=== PATIENT | female | born 2000 | race Caucasian/White ===

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

== ENCOUNTER → 2020-02-19 10:42 | Outpatient (CLI) | payer MEDICAID, SELFPAY | PROVIDERS: Visit Provider Nurse Practitioner Obstetrics & Gynecology | DX: Z34.90 Encounter for supervision of normal pregnancy, unspecified, unspecified trimester (principal) | CPT/HCPCS: 36415; 84702 ==

== ENCOUNTER → 2020-02-23 10:15 | Outpatient (CLI) | payer MEDICAID, SELFPAY ==
[2020-02-23 10:45] LABS: Basophils % 0.2 % (0.1-2.0); Eosinophils # 0.1 K/mm3 (0.0-0.4); Eosinophils % 1.1 % (0.1-12.0); Hematocrit 36.9 % (37.0-47.0); Hemoglobin 11.8 g/dL (12.2-16.2); Lymphocytes # 1.3 K/mm3 (0.7-4.5); Lymphocytes % 18.3 % (10-50); Mean Corpuscular HGB Conc 31.9 g/dL (31.8-35.4); Mean Corpuscular Hemoglobin 31.4 pg (27.0-31.2); Mean Corpuscular Volume 98.6 fl (81-99); Mean Platelet Volume 9.2 fl (7.4-10.4); Monocytes # 0.3 K/mm3 (0.1-1.0); Monocytes % 4.7 % (1.7-9.3); Neutrophils # 5.2 K/mm3 (1.8-7.8); Neutrophils % 75.7 % (37.0-80.0); Platelet Count 183 K/mm3 (142-424); Red Blood Count 3.74 M/mm3 (4.20-5.40); Red Cell Distribution Width 12.6 % (11.5-17.5); White Blood Count 6.8 K/mm3 (4.5-13.0)
[2020-02-24 13:19] LABS: HIV Screen 4th Generation wRfx Non Reactive (Non Reactive); Rubella Antibodies, IgG 1.07 index (Immune >0.99)
[2020-02-24 13:20] LABS: Hepatitis B Surface Antigen Negative (Negative); Hepatitis C Antibody 0.1 s/co ratio (0.0-0.9)
[2020-02-24 15:50] LABS: Rapid Plasma Reagin Ab Titer Non Reactive (NonRea<1:1)
[2020-02-26 09:35] LABS: Neisseria gonorrhoeae, NAA Negative (Negative)
== END ==
PROVIDERS: Visit Provider Nurse Practitioner Obstetrics & Gynecology
DX: Z34.90 Encounter for supervision of normal pregnancy, unspecified, unspecified trimester (principal); Z3A.08 8 weeks gestation of pregnancy
CPT/HCPCS: 36415; 85025; 86592; 86703; 86762; 86850; 87340; 87380; 87491; 87591; G0432

== ENCOUNTER → 2020-02-26 10:33 | Outpatient (CLI) | payer MEDICAID, SELFPAY ==
--- NOTE | 2020-02-26 10:40 | US_ITS ---
PROCEDURE: US OB TRANSVAGINAL CLINICAL INDICATION: DATES COMPARISON: US US OB TRANSVAGINAL from 02/27/2019 FINDINGS: An intrauterine gestational sac is present with a pole with a crown-rump length of 2.04cm correlating to gestational age of 8weeks 5days. heart tones are present with an FHR of 186bpm. Yolk sac is noted. There is an area of decreased echogenicity along the anterior aspect of the gestational sac suspicious for small area subchorionic hemorrhage. This measures approximately 3 x 0.8 cm. Consider follow-up to confirm resolution. IMPRESSION: Live IUP at 8 weeks 5 days. Estimated due date by Ultrasound is 10/02/2020 Possible small area of subchorionic hemorrhage. Dictated by: Wilfredo Carrion MD 02/26/2020 17:48 Wilfredo Carrion MD in [place] 02/26/2020 17:48
== END ==
PROVIDERS: Visit Provider Nurse Practitioner Obstetrics & Gynecology
DX: Z34.90 Encounter for supervision of normal pregnancy, unspecified, unspecified trimester (principal)
CPT/HCPCS: 76817

== ENCOUNTER → 2020-03-14 09:47 | Outpatient (CLI) | payer MEDICAID, SELFPAY | PROVIDERS: Visit Provider Nurse Practitioner Obstetrics & Gynecology | DX: Z34.90 Encounter for supervision of normal pregnancy, unspecified, unspecified trimester (principal) | CPT/HCPCS: 36415 ==

== ENCOUNTER 2020-04-25 12:58 | Emergency (ER) | payer OTHER, SELFPAY ==
[2020-04-25 12:59] VITALS: BP 124/64; PULSE 98; RESP 20; TEMP 36.9; O2SAT 100; BMI 19.5
[2020-04-25 13:22] LABS: Microscopic, Urine URINE MICROSCOPIC (MICROSCOPIC)
[2020-04-25 13:28] LABS: Appearance,Urine SL CLOUDY (Clear); Bilirubin,Urine Negative (Negative); Blood, Urine Negative (Negative); Color,Urine YELLOW (Yellow); Glucose,Urine (UA) Negative (Negative); Ketones,Urine Negative (Negative); Leukocyte Esterase,Urine 2+ (Negative); Nitrate,Urine Negative (Negative); PH,Urine 7.5 (5.0-8.5); Protein,Urine Negative (Negative); Urobilinogen,Urine 0.2 EU/dl (0.2)
[2020-04-25 13:28] LABS: Basophils % 0.3 % (0.1-2.0); Eosinophils # 0.1 K/mm3 (0.0-0.4); Eosinophils % 0.5 % (0.1-12.0); Hematocrit 38.7 % (37.0-47.0); Hemoglobin 13.1 g/dL (12.2-16.2); Lymphocytes # 1.2 K/mm3 (0.7-4.5); Lymphocytes % 10.5 % (10-50); Mean Corpuscular HGB Conc 33.9 g/dL (31.8-35.4); Mean Corpuscular Hemoglobin 32.6 pg (27.0-31.2); Mean Corpuscular Volume 96.1 fl (81-99); Mean Platelet Volume 9.1 fl (7.4-10.4); Monocytes # 0.4 K/mm3 (0.1-1.0); Monocytes % 3.3 % (1.7-9.3); Neutrophils # 9.5 K/mm3 (1.8-7.8); Neutrophils % 85.5 % (37.0-80.0); Platelet Count 205 K/mm3 (142-424); Red Blood Count 4.02 M/mm3 (4.20-5.40); Red Cell Distribution Width 13.8 % (11.5-17.5); White Blood Count 11.1 K/mm3 (4.5-13.0)
[2020-04-25 13:32] LABS: Alanine Aminotransferase 22 U/L (12-78); Albumin Level 4.2 g/dl (3.5-5.0); Albumin/Globulin Ratio 1.4 (1.1-1.8); Alkaline Phosphatase 53 U/L (38-126); Aspartate Amino Transferase 29 U/L (14-36); Bilirubin,Total 0.4 mg/dl (0.2-1.3); Blood Urea Nitrogen 3 mg/dl (7-17); Carbon Dioxide 27 mmol/L (22.0-30.0); Creatinine Clearance Estimated 185 mL/min (50-200); Estimated Glomerular Filt Rate 206 ml/min (>60); GFR (African American) 249 ML/MIN (>60); Globulin 2.9 g/dL (1.3-3.2); Glucose 92 mg/dl (74-100); Potassium 3.9 mmoL/L (3.5-5.1); Sodium 136 mmol/L (136-145); Total Protein,Serum 7.1 g/dl (6.3-8.2)
[2020-04-25 13:34] LABS: MANUAL DIFFERENTIAL MANUAL DIFFERENTIAL (MANUAL DIFF)
[2020-04-25 13:38] LABS: Anion Gap 10.9 mEq/L (5-15); Chloride 102 mmol/L (98-107)
[2020-04-25 13:39] LABS: Lymphocytes % 17 % (10-50); Monocytes % 4 % (2-9); Neutrophils % 78 % (42-76); Platelet Estimate Normal; RBC Morphology Normal; Total Cells Counted 100
[2020-04-25 13:43] LABS: Bacteria,Urine 2+ /lpf; Mucus,Urine Trace /lpf
--- NOTE | 2020-04-25 14:01 | PC.NURSE ---
heart tones 156
--- NOTE | 2020-04-25 14:04 | US_ITS ---
PROCEDURE: US OB >= 14 WEEKS FETUS CLINICAL INDICATION: pain, bleeding COMPARISON: US US OB TRANSVAGINAL from 02/26/2020 FINDINGS: An intrauterine gestational sac is present with a pole with a crown-rump length of correlating to gestational age of 17weeks 6days. heart tones are present with an FHR of 140bpm. Yolk sac is noted. The cervix is closed and measures 4 cm. The placenta is anterior. BPD is 18 weeks 2 days, OFD 18 weeks 1 day, HC 17 weeks 5 days, AC 17 weeks 3 days, FL 17 weeks 4 days. Estimated weight is 196 g. There is of average amount of amniotic fluid. Fetus is in transverse lie. The placenta is anterior and low. IMPRESSION: There is a live IUP with an average ultrasound age 17 weeks and 6 days. This does not constitute an anatomy exam. Please see above for detail. Estimated due date by Ultrasound is 09/27/2020 Dictated by: Wilfredo Carrion MD 04/25/2020 15:59 Wilfredo Carrion MD in [place] 04/25/2020 15:59
--- NOTE | 2020-04-25 14:27 | HMH.EDUROGF ---
ED Disposition Clinical Impression: Threatened Disposition: Home, Self-Care Condition on Discharge: Good Instructions: DI for Threatened Prescriptions: cephALEXin [Keflex 500mg Cap] 500 mg PO BID #10 cap Transmission Status: Pending to [facility] Referrals: Moose Jackson MD [Primary Care Provider] - - Critical Care Critical Care Time: No Attestation: On 04/25/20, the high probability of a clinically significant, sudden or life threatening deterioration of the following system(s) required my full and direct attention, intervention and personal management. The time I documented below is in addition to time spent performing reported procedures but includes the following listed in this critical care notation. Medical Decision Making - Medical Records Medical records reviewed: Yes: I reviewed the patient's medical records. - Marco Inquiry Pt receiving controlled substance: No Vital Signs: 04/25/20 12:59 04/25/20 14:59 04/25/20 15:47 Temperature 98.5 F Temperature Source Oral Pulse Rate [Left Radial] 98 H 77 77 Respiratory Rate 20 Blood Pressure [Right Arm] 124/64 99/59 L 99/63 L Blood Pressure Mean [Right Arm] 84 72 75 Blood Pressure Source [Right Arm] Automatic Cuff Automatic Cuff Automatic Cuff Blood Pressure Position [Right Arm] Sitting Sitting 02 Sat by Pulse Oximetry 100 99 99 Oxygen Delivery Method Room Air Room Air Room Air - Lab Data Lab Results 04/25/20 13:10: Urine Color Yellow, Urine Appearance Sl cloudy, Urine pH 7.5, Ur Specific [place] 1.020, Urine Protein Negative, Urine Glucose (UA) Negative, Urine Ketones Negative, Urine Blood Negative, Urine Nitrate Negative, Urine Bilirubin Negative, Urine Urobilinogen 0.2, Ur Leukocyte Esterase 2+ A, Urine WBC 5-10, Ur Squamous Epith Cells 10-20, Urine Bacteria 2+, Urine Mucus Trace 04/25/20 13:15: WBC 11.1, RBC 4.02 L, Hgb 13.1, Hct 38.7, MCV 96.1, MCH 32.6 H, MCHC 33.9, RDW 13.8, Plt Count 205, MPV 9.1, Neut % (Auto) 85.5 H, Lymph % (Auto) 10.5, [place] % (Auto) 3.3, Eos % (Auto) 0.5, Baso % (Auto) 0.3, Neut # (Auto) 9.5 H, Lymph # (Auto) 1.2, [place] # (Auto) 0.4, Eos # (Auto) 0.1, Baso # (Auto) 0.0, Total Counted 100, Neutrophils % (Manual) 78 H, Band Neutrophils % 1.0, Lymphocytes % (Manual) 17, Monocytes % (Manual) 4, Platelet Estimate Normal, RBC Morphology Normal 04/25/20 13:15: Sodium 136, Potassium 3.9, Chloride 102, Carbon Dioxide 27, Anion Gap 10.9, BUN 3 L, Creatinine 0.40 L, Estimated Creat Clear 185, Estimated GFR 206, Est GFR ( Amer) 249, Glucose 92, Calcium 9.0, Total Bilirubin 0.4, AST 29, ALT 22, Alkaline Phosphatase 53, Total Protein 7.1, Albumin 4.2, Globulin 2.9, Albumin/Globulin Ratio 1.4, HCG, Quant [id number] H Result diagrams: 04/25/20 13:15 04/25/20 13:15 Orders (Tests/Meds): ED MEDICATIONS Discontinued Medications Generic Name Dose Route Start Last Admin Trade Name Freq PRN Reason Stop Dose Admin Acetaminophen 1,000 mg 04/25/20 14:04 04/25/20 14:39 Acetaminophen 500mg Tab PO 04/25/20 14:05 1,000 mg ONCE ONE Administration Sodium Chloride 1,000 mls @ 999 mls/hr 04/25/20 14:15 04/25/20 14:39 Sod Chlor 0.9% 1000ml Bag IV 04/25/20 15:15 999 mls/hr .Q1H1M NILAM Administration ORDERS Category Date Time Status Urine Culture Stat Micro 04/25/20 13:10 Received US OB >= 14 weeks Fetus Stat Ultrasound 04/25/20 14:04 Ordered - US Data US Images: Pelvis ED US Reviewed: Yes: I have reviewed the patient's US results Findings Narrative: No evidence of free fluid in the abdomen. Good heart tones. - Reevaluation(s) Time: 16:39 Reevaluation #1: On reevaluation, patient is feeling better. She does have evidence of bacteria in her urine. Will be placed on short course of antibiotics. Patient does need follow-up with her COATING TECHNICIAN in 24 hours. Given strict return precautions. Verbalized understanding. Medical Decision Narrative: This is a 19-year-
[2020-04-25 14:59] VITALS: BP 99/59; PULSE 77; O2SAT 99
--- NOTE | 2020-04-25 15:00 | PC.NURSE ---
notified rad of ultrasound order
--- NOTE | 2020-04-25 15:13 | PC.NURSE ---
Pt to US
[2020-04-25 15:47] VITALS: BP 99/63; PULSE 77; O2SAT 99
--- NOTE | 2020-04-25 15:49 | PC.NURSE ---
Pt returned from rad.
[2020-04-25 17:02] VITALS: BP 114/70; PULSE 75; RESP 18; TEMP 36.9; O2SAT 100
== END 2020-04-25 17:03 | disposition home or self-care (01) ==
PROVIDERS: Emergency Provider Emergency Medicine; PCP Internal Medicine Adolescent Medicine
DX: O20.0 Threatened abortion (principal); Z88.0 Allergy status to penicillin
CPT/HCPCS: 76805; 80053; 81001; 84702; 85007; 85025; 87086; 96365; 99283

== ENCOUNTER → 2020-04-26 17:10 | Outpatient (CLI) | payer OTHER, SELFPAY ==
[2020-04-26 17:23] LABS: Microscopic, Urine URINE MICROSCOPIC (MICROSCOPIC)
[2020-04-26 18:02] LABS: Appearance,Urine CLOUDY (Clear); Bilirubin,Urine Negative (Negative); Blood, Urine Negative (Negative); Color,Urine YELLOW (Yellow); Glucose,Urine (UA) Negative (Negative); Ketones,Urine Negative (Negative); Leukocyte Esterase,Urine 3+ (Negative); Nitrate,Urine Negative (Negative); PH,Urine 7.5 (5.0-8.5); Protein,Urine Negative (Negative); Specific Gravity, Urine 1.025 (1.005-1.030); Urobilinogen,Urine 0.2 EU/dl (0.2)
[2020-04-26 18:21] LABS: Amorphous Sediment,Urine 1+ /lpf; Bacteria,Urine 1+ /lpf
== END ==
PROVIDERS: Visit Provider Nurse Practitioner Obstetrics & Gynecology
DX: Z34.90 Encounter for supervision of normal pregnancy, unspecified, unspecified trimester (principal); Z3A.17 17 weeks gestation of pregnancy
CPT/HCPCS: 81001; 87086

== ENCOUNTER → 2020-05-17 12:59 | Outpatient (CLI) | payer OTHER, SELFPAY ==
--- NOTE | 2020-05-17 13:00 | US_ITS ---
PROCEDURE: US OB /MATERNAL DETAIL Referring Doctor: Stanford Esparza Patient Age:19Y CLINICAL INDICATION: 20 week gestation the. Follow-up COMPARISON: US US OB >= 14 WEEKS FETUS from 04/25/2020-at which time the AUA was 17 weeks 6 days FINDINGS: Single viable intrauterine gestation. Breech position. Placenta: Anteriorplacenta grade 1 . There is average amount fluid. The cervix appears satisfactory. Closed and measuring 4 cm in length. Complete survey performed and was unremarkable on the submitted images as in PACS. No discrete anomalies identified on survey imaging by technologist. Active fetus. Three-vessel cord with satisfactory umbilical cord insertion. 4- chamber heart noted. LVOT imaged and unremarkable Survey of brain & ventricles Unremarkable. Face and neck survey unremarkable. Diaphragm and chest views unremarkable. Abdomen: Both kidneys noted and unremarkable. Stomach noted and satisfactory. Spine: Survey of the spine satisfactory with no anomalies identified nor imaged. Both arms and legs noted. Amniotic Fluid: Adequate. Maternal adnexa: No significant findings. Measurements: Average ultrasound age 20weeks 2days. Gestational Age 20weeks 2days Estimated due date by ultrasound age 0510/02/2020. Estimated weight 342ggrams. BPD = 20 weeks 3 days OFD = 20 weeks 6 days HC = 20 weeks 0 days AC = 20 weeks 2 days FL = 20 weeks 3 days Growth Percentile= 34Percent% Heart Rate = 147bpm Cerebellum = 20 weeks 3 days Humerus = 20 week 4 day HC/AC is 1.16 CI is 0.76 FL/BPD is 0.7 FL/AC is 0.22 IMPRESSION: Single viable intrauterine gestation 20 weeks 2 days average ultrasound age Breech position. Placenta anterior high grade 1. . Anatomy survey unremarkable/WNL Cervix length and amnionic fluid satisfactory movement seen throughout the exam Dictated by: Aroldo Chinchilla MD 05/17/2020 19:31 Aroldo Chinchilla MD in [place] 05/17/2020 19:31
== END ==
PROVIDERS: PCP Internal Medicine Adolescent Medicine; Visit Provider Nurse Practitioner Obstetrics & Gynecology
DX: Z34.90 Encounter for supervision of normal pregnancy, unspecified, unspecified trimester (principal); Z3A.20 20 weeks gestation of pregnancy
CPT/HCPCS: 76811

== ENCOUNTER 2020-05-20 22:53 | Outpatient (CLI) | payer OTHER, SELFPAY ==
[2020-05-20 23:02] VITALS: BP 106/72; PULSE 72; RESP 16; TEMP 36.9; O2SAT 100; BMI 18.7
[2020-05-20 23:48] LABS: Microscopic, Urine URINE MICROSCOPIC (MICROSCOPIC)
[2020-05-20 23:50] LABS: Basophils # 0.1 K/mm3 (0-0.2); Basophils % 0.4 % (0.1-2.0); Eosinophils # 0.2 K/mm3 (0.0-0.4); Eosinophils % 1.4 % (0.1-12.0); Hematocrit 36.2 % (37.0-47.0); Lymphocytes # 1.8 K/mm3 (0.7-4.5); Lymphocytes % 13.9 % (10-50); Mean Corpuscular Hemoglobin 32.4 pg (27.0-31.2); Mean Platelet Volume 9.2 fl (7.4-10.4); Monocytes # 0.6 K/mm3 (0.1-1.0); Monocytes % 4.3 % (1.7-9.3); Neutrophils # 10.6 K/mm3 (1.8-7.8); Neutrophils % 80.1 % (37.0-80.0); Platelet Count 210 K/mm3 (142-424); White Blood Count 13.3 K/mm3 (4.5-13.0)
[2020-05-20 23:52] LABS: Appearance,Urine SL CLOUDY (Clear); Bilirubin,Urine Negative (Negative); Blood, Urine 3+ (Negative); Color,Urine YELLOW (Yellow); Glucose,Urine (UA) Negative (Negative); Ketones,Urine Negative (Negative); Leukocyte Esterase,Urine TRACE (Negative); Nitrate,Urine Negative (Negative); PH,Urine 6.5 (5.0-8.5); Protein,Urine Negative (Negative); Specific Gravity, Urine 1.015 (1.005-1.030); Urobilinogen,Urine 0.2 EU/dl (0.2)
[2020-05-20 23:56] LABS: RBC,Urine 50-100 #/hpf (0-3)
[2020-05-21 00:03] LABS: Amphetamine/Metha Screen,Urine Negative ng/ml (<1000); Barbiturates Screen,Urine Negative ng/ml (<200)
[2020-05-21 00:04] LABS: Cannabinoid Screen,Urine Negative ng/ml (<50); Cocaine Screen,Urine Negative ng/ml (<300)
[2020-05-21 00:05] LABS: Methadone Screen,Urine Negative ng/ml (<300)
[2020-05-21 00:06] LABS: Opiate Screen,Urine Negative ng/ml (<300); Phencyclidine Screen,Urine Negative ng/ml (<25)
[2020-05-21 00:26] LABS: Benzodiazepines Screen,Urine Negative ng/ml (<200)
== END 2020-05-21 00:18 | disposition home or self-care (01) ==
LOC: OBOUT 22:55 → OB 22:56
PROVIDERS: PCP Nurse Practitioner Obstetrics & Gynecology; Visit Provider Obstetrics & Gynecology
DX: O26.859 Spotting complicating pregnancy, unspecified trimester (principal); Z3A.20 20 weeks gestation of pregnancy
CPT/HCPCS: 80305; 81001; 85025; 96365; G0463

== ENCOUNTER → 2020-06-28 08:19 | Outpatient (CLI) | payer OTHER, SELFPAY ==
[2020-06-28 08:50] LABS: Glucose,Fasting 88 mg/dl (74-100)
[2020-06-28 10:08] LABS: Glucose 1 Hour 79 mg/dL (74-100)
== END ==
PROVIDERS: Visit Provider Nurse Practitioner Obstetrics & Gynecology
DX: Z34.90 Encounter for supervision of normal pregnancy, unspecified, unspecified trimester (principal)
CPT/HCPCS: 36415; 82951

== ENCOUNTER → 2020-07-18 10:11 | Outpatient (CLI) | payer OTHER, SELFPAY ==
--- NOTE | 2020-07-18 10:15 | US_ITS ---
PROCEDURE: US OB FOLLOW UP CLINICAL INDICATION: SGA Small for gestational age COMPARISON: US US OB /MATERNAL DETAIL from 05/17/2020 FINDINGS: There is a single live fetus present which is in cephalic presentation. The cervix is closed measuring 3 cm. Placenta is anterior in implantation and grade 1. Measurements: Average ultrasound age 29weeks 3days. Gestational Age 29weeks 2days Estimated due date by ultrasound age 0509/30/2020. Estimated weight 1,380g BPD = 29weeks 3days OFD = 29weeks 2days HC = 29weeks 1day AC = 29weeks 1day FL = 29weeks 6days Growth Percentile= 39Percent% Heart Rate = 127bpm Cerebellum = Humerus = HC/AC is 1.08 CI is 0.77 FL/BPD is 0.78 FL/AC is 0.23 CLAUDE is 13 cm. IMPRESSION: Live IUP in cephalic presentation with an average ultrasound age 29 weeks 3 days. Estimated weight is 1380 g which is 39th percentile. CLAUDE is normal at 13 cm Dictated by: Wilfredo Carrion MD 07/19/2020 08:54 Wilfredo Carrion MD in [place] 07/19/2020 08:54
== END ==
PROVIDERS: PCP Internal Medicine Adolescent Medicine; Visit Provider Nurse Practitioner Obstetrics & Gynecology
DX: O36.5131 Maternal care for known or suspected placental insufficiency, third trimester, fetus 1 (principal)
CPT/HCPCS: 76816

== ENCOUNTER → 2020-09-06 17:18 | Outpatient (CLI) | payer OTHER, SELFPAY | PROVIDERS: Visit Provider Nurse Practitioner Obstetrics & Gynecology | DX: Z34.90 Encounter for supervision of normal pregnancy, unspecified, unspecified trimester (principal) | CPT/HCPCS: 86403 ==

== ENCOUNTER → 2020-09-07 12:46 | Outpatient (CLI) | payer OTHER, SELFPAY ==
[2020-09-07 13:09] LABS: Adenovirus,PCR Not Detected (NotDetected); Bordetella Pertussis Not Detected (NotDetected); Chlamydophila Pneumoniae, PCR Not Detected (NotDetected); Coronavirus 19, PCR Not Detected (NotDetected); Coronavirus 229E Not Detected (NotDetected); Coronavirus NL63 Not Detected (NotDetected); Coronavirus OC43 Not Detected (NotDetected); Coronovirus HKU1,PCR Not Detected (NotDetected); Human Metapneumovirus Not Detected (NotDetected); Influenza A, PCR Not Detected (NotDetected); Influenza AH1, 2009 Not Detected (NotDetected); Influenza AH1, PCR Not Detected (NotDetected); Influenza AH3,PCR Not Detected (NotDetected); Influenza B, PCR Not Detected (NotDetected); Mycoplasma Pneumoniae, PCR Not Detected (NotDetected); Parainfluenza 1, PCR Not Detected (NotDetected); Parainfluenza 2, PCR Not Detected (NotDetected); Parainfluenza 3, PCR Not Detected (NotDetected); Parainfluenza 4, PCR Not Detected (NotDetected); Respiratory Syncytial Virus Not Detected (NotDetected)
[2020-09-07 21:11] LABS: Rhinovirus/Enterovirus Detected (NotDetected)
== END ==
PROVIDERS: PCP Internal Medicine Adolescent Medicine; Visit Provider Internal Medicine Adolescent Medicine
DX: Z20.822 Contact with and (suspected) exposure to COVID-19 (principal); J06.9 Acute upper respiratory infection, unspecified; A08.11 Acute gastroenteropathy due to Norwalk agent
CPT/HCPCS: 87581; 87633; 87798

== ENCOUNTER 2020-09-10 05:33 | Outpatient (CLI) | payer OTHER, SELFPAY ==
[2020-09-10 05:40] VITALS: BMI 23.3
[2020-09-10 06:24] LABS: Microscopic, Urine URINE MICROSCOPIC (MICROSCOPIC)
[2020-09-10 06:36] VITALS: BP 115/78; PULSE 73; RESP 16; TEMP 36.8; O2SAT 97; BMI 23.3
[2020-09-10 06:37] LABS: Appearance,Urine CLEAR (Clear); Bilirubin,Urine Negative (Negative); Blood, Urine Negative (Negative); Color,Urine YELLOW (Yellow); Glucose,Urine (UA) Negative (Negative); Ketones,Urine Negative (Negative); Leukocyte Esterase,Urine Negative (Negative); Nitrate,Urine Negative (Negative); Protein,Urine Negative (Negative); Specific Gravity, Urine 1.015 (1.005-1.030); Urobilinogen,Urine 0.2 EU/dl (0.2)
[2020-09-10 06:42] LABS: Amphetamine/Metha Screen,Urine Negative ng/ml (<1000)
[2020-09-10 06:43] LABS: Barbiturates Screen,Urine Negative ng/ml (<200)
[2020-09-10 06:44] LABS: Benzodiazepines Screen,Urine Negative ng/ml (<200)
[2020-09-10 06:45] LABS: Cannabinoid Screen,Urine Negative ng/ml (<50); Cocaine Screen,Urine Negative ng/ml (<300)
[2020-09-10 06:46] LABS: Methadone Screen,Urine Negative ng/ml (<300)
[2020-09-10 06:46] LABS: Fetal Membrane Rupture (Rapid) Negative (Negative)
[2020-09-10 06:47] LABS: Opiate Screen,Urine Negative ng/ml (<300); Phencyclidine Screen,Urine Negative ng/ml (<25)
[2020-09-10 06:53] LABS: Bacteria,Urine Trace /lpf; WBC,Urine Occasional #/hpf (0-3)
== END 2020-09-10 11:26 | disposition home or self-care (01) ==
LOC: OBOUT 05:35 → OB 05:36
PROVIDERS: PCP Internal Medicine Adolescent Medicine; Referring Provider Nurse Practitioner Obstetrics & Gynecology; Visit Provider Obstetrics & Gynecology
DX: O60.03 Preterm labor without delivery, third trimester (principal); Z3A.37 37 weeks gestation of pregnancy
CPT/HCPCS: 59025; 80305; 81001; 84112; 96365; 96372; G0463

== ENCOUNTER 2020-09-15 23:25 | Outpatient (CLI) | payer OTHER, SELFPAY ==
[2020-09-15 23:36] VITALS: BP 134/77; PULSE 86; RESP 18; TEMP 36.9; O2SAT 99; BMI 23.3
[2020-09-16 00:11] LABS: Microscopic, Urine URINE MICROSCOPIC (MICROSCOPIC)
[2020-09-16 00:22] LABS: Appearance,Urine CLEAR (Clear); Bilirubin,Urine Negative (Negative); Blood, Urine Negative (Negative); Color,Urine YELLOW (Yellow); Glucose,Urine (UA) Negative (Negative); Ketones,Urine Negative (Negative); Leukocyte Esterase,Urine 1+ (Negative); Nitrate,Urine Negative (Negative); Protein,Urine Negative (Negative); Specific Gravity, Urine 1.015 (1.005-1.030); Urobilinogen,Urine 0.2 EU/dl (0.2)
[2020-09-16 00:24] LABS: Fetal Membrane Rupture (Rapid) Negative (Negative)
[2020-09-16 00:33] LABS: Bacteria,Urine 1+ /lpf
[2020-09-16 01:27] LABS: Amphetamine/Metha Screen,Urine Negative ng/ml (<1000); Benzodiazepines Screen,Urine Negative ng/ml (<200)
[2020-09-16 01:28] LABS: Barbiturates Screen,Urine Negative ng/ml (<200)
[2020-09-16 01:29] LABS: Cannabinoid Screen,Urine Negative ng/ml (<50); Cocaine Screen,Urine Negative ng/ml (<300)
[2020-09-16 01:30] LABS: Methadone Screen,Urine Negative ng/ml (<300)
[2020-09-16 01:31] LABS: Opiate Screen,Urine Negative ng/ml (<300); Phencyclidine Screen,Urine Negative ng/ml (<25)
== END 2020-09-16 00:49 | disposition home or self-care (01) ==
LOC: OBOUT 23:26 → OB 23:30
PROVIDERS: PCP Internal Medicine Adolescent Medicine; Referring Provider Obstetrics & Gynecology; Visit Provider Nurse Practitioner Obstetrics & Gynecology
DX: O36.8130 Decreased fetal movements, third trimester, not applicable or unspecified (principal); Z3A.37 37 weeks gestation of pregnancy; O60.00 Preterm labor without delivery, unspecified trimester; O41.8X90 Other specified disorders of amniotic fluid and membranes, unspecified trimester, not applicable or unspecified
CPT/HCPCS: 59025; 80305; 81001; 84112; 87086; G0463

== ENCOUNTER → 2020-09-25 09:30 | Outpatient (CLI) | payer OTHER, SELFPAY | PROVIDERS: PCP Internal Medicine Adolescent Medicine; Visit Provider Nurse Practitioner Obstetrics & Gynecology | DX: Z34.90 Encounter for supervision of normal pregnancy, unspecified, unspecified trimester (principal) | CPT/HCPCS: U0003 ==

== ENCOUNTER 2020-09-26 04:53 | Inpatient (IN) | payer OTHER, SELFPAY ==
[2020-09-26 05:08] VITALS: BMI 24.0
[2020-09-26 05:57] LABS: Microscopic, Urine URINE MICROSCOPIC (MICROSCOPIC)
[2020-09-26 05:58] LABS: Basophils % 0.2 % (0.1-2.0); Eosinophils # 0.1 K/mm3 (0.0-0.4); Eosinophils % 0.8 % (0.1-12.0); Hematocrit 31.2 % (37.0-47.0); Hemoglobin 10.1 g/dL (12.2-16.2); Lymphocytes # 2.1 K/mm3 (0.7-4.5); Lymphocytes % 16.8 % (10-50); Mean Corpuscular HGB Conc 32.5 g/dL (31.8-35.4); Mean Corpuscular Hemoglobin 29.5 pg (27.0-31.2); Monocytes # 0.6 K/mm3 (0.1-1.0); Monocytes % 4.4 % (1.7-9.3); Neutrophils # 9.9 K/mm3 (1.8-7.8); Neutrophils % 77.8 % (37.0-80.0); Platelet Count 259 K/mm3 (142-424); Red Blood Count 3.43 M/mm3 (4.20-5.40); White Blood Count 12.7 K/mm3 (4.5-13.0)
[2020-09-26 06:00] LABS: Appearance,Urine SL CLOUDY (Clear); Bilirubin,Urine Negative (Negative); Blood, Urine Negative (Negative); Color,Urine YELLOW (Yellow); Glucose,Urine (UA) Negative (Negative); Ketones,Urine Negative (Negative); Leukocyte Esterase,Urine 2+ (Negative); Nitrate,Urine Negative (Negative); Protein,Urine Negative (Negative); Specific Gravity, Urine 1.015 (1.005-1.030); Urobilinogen,Urine 0.2 EU/dl (0.2)
[2020-09-26 06:10] LABS: Amphetamine/Metha Screen,Urine Negative ng/ml (<1000); Bacteria,Urine Trace /lpf; Squamous Epithelial Cell,Urine TNTC #/hpf (0-5); WBC,Urine 50-100 #/hpf (0-3)
[2020-09-26 06:11] LABS: Barbiturates Screen,Urine Negative ng/ml (<200)
[2020-09-26 06:12] LABS: Benzodiazepines Screen,Urine Negative ng/ml (<200); Cannabinoid Screen,Urine Negative ng/ml (<50)
[2020-09-26 06:13] LABS: Cocaine Screen,Urine Negative ng/ml (<300); Methadone Screen,Urine Negative ng/ml (<300)
[2020-09-26 06:14] LABS: Opiate Screen,Urine Negative ng/ml (<300)
[2020-09-26 06:15] LABS: Phencyclidine Screen,Urine Negative ng/ml (<25)
[2020-09-26 07:45] VITALS: BP 119/76; PULSE 86; RESP 18; TEMP 36.7; O2SAT 100; BMI 23.8
--- NOTE | 2020-09-26 09:15 | HMH.LABNOT ---
Labor Note - Subjective: Date: 09/26/20 Time: 09:15 regular contraction - Objective: NST:: Reactive Contractions:: every 2-3 minutes Cervical Dilation:: 4 Effacement:: 75% Station: 0 Membranes: artificially ruptured - Fetus: Monitoring?: Yes monitoring type:: Internal and External Comment:: I ruptured her membranes and inserted an IUPC. - Assessment: Patient Problems: All Active Problems Threatened (Acute) (Acute) - Plan: Anesthesia for epidural?: Yes Continue to labor down?: Yes Plan for ?: No Continue to monitor?: Yes Start pushing?: No
--- NOTE | 2020-09-26 09:23 | HMH.OBAPHP ---
OB - H&P: HPI Antepartum - History of Present Illness Chief complaint: Term History of present illness: She is a 19-year-old 2 para 0 aborta 1 who is 39+ weeks gestational age. She was found to be 3 to 4 cm in my office and having contractions and discomfort. As result of that she is admitted for delivery. - History of Present Criteria for establishing EDC:: based on 1st trimester US only care: good care Ultrasounds: normal 1st trimester US, normal mid trimester US Obstetrical complications: none Medical complications: none [facility] History I have reviewed the patient's past medical history: Yes Medical History: Denies:: Cancer, Diabetes Mellitus Type 1, Diabetes Mellitus Type 2, Internal Pacemaker, MRSA, Seizures *Have you ever received a pneumonia vaccine?: No *Have you received a flu vaccine this season?: No Other Medical History: Denies: Blood Transfusion Reaction Laterality Cases: Bilateral: Tonsillectomy Other Surgeries: Yes: Other. No: , Pacemaker Amputation: No Fractures: No - *Social History Smoking Status: Never smoker Alcohol Intake: never Alcohol Intake Frequency:: other Substance Use Type: denies use *Occupational Status:: unemployed Housing: house Household Members: significant other *Travel in the last 8 weeks: None Family Hx:: No significant family history Para: 0 Review of Systems - Review of Systems Review of systems:: pertinent systems reviewed and negative unless documented below Meds Home Medications Medication Instructions Recorded Confirmed Type prenat.vits,lilly,cvv-ioww-pumtf 1 tab PO DAILY 03/17/19 09/26/20 History loratadine 10 mg tablet 10 mg PO NEEDED PRN tab 05/17/20 09/26/20 History Ferrous Sulfate 325 mg PO DAILY 09/26/20 09/26/20 History Allergies Allergy/AdvReac Type Severity Reaction Status Date / Time amoxicillin Allergy Mild hives Verified 09/22/20 09:54 Penicillins Allergy Mild hives Verified 09/22/20 09:54 grape flavor Allergy Blister Verified 09/26/20 07:43 metronidazole [From Flagyl] Allergy Blisters/vo Verified 09/22/20 09:54 miting OB - H&P: Exam - Physical Exam Vital signs: Temp Pulse Resp BP Pulse Ox 98.1 F 86 18 119/76 100 09/26/20 07:45 09/26/20 07:45 09/26/20 07:45 09/26/20 07:45 09/26/20 07:45 - Constitutional no acute distress - Routine HEENT Exam Head: Present: normocephalic Eye: Present: EOMI, PERRL ENT: Present: mucous membranes moist - Routine Neck Exam Present: supple, full ROM - Routine Respiratory Exam Absent: accessory muscle use (good air entry bilaterally), respiratory distress, wheezes, crackles - Routine Cardiovascular Exam Present: RRR. Absent: murmur - Routine Abdominal Exam Present: soft, normoactive bowel sounds. Absent: tenderness, distended, guarding - Routine Rectal Exam Patient deferred: visual exam, digital exam - Routine Exam Patient deferred: external exam, groin exam, perineal exam - Routine Extremities Exam Present: full ROM. Absent: cyanosis, edema - Routine Skin Exam Present: intact. Absent: cyanosis - Routine Neurological Exam Present: alert, oriented X3 - Routine Psychiatric Exam Present: normal affect OB - Results - Labs Labs: Short CBC 09/26/20 Range/Units 05:30 WBC 12.7 (4.5-13.0) K/mm3 Hgb 10.1 L (12.2-16.2) g/dL Hct 31.2 L (37.0-47.0) % Plt Count 259 (142-424) K/mm3 Urine 09/26/20 Range/Units 05:10 Urine Color Yellow (Yellow) Urine Appearance Sl cloudy (Clear) Urine pH 7.0 (5.0-8.5) Ur Specific [place] 1.015 (1.005-1.030) Urine Protein Negative (Negative) Urine Glucose (UA) Negative (Negative) OB - A/P Antepartum (1) Normal delivery at term Status: Acute (2) First in adolescent 16 years of age or older Status: Acute - Additional Plan Planning to breastfeed?: No Plan: induction Additional Information:: S
--- NOTE | 2020-09-26 11:04 | HMH.ANESCL ---
[facility] Anesthesia Checklist - Structural Data Admitted From: Inpatient Planned Operative Procedure/s: labor epidural Consent for Planned Operative Procedure(s) Verified: Yes - Additional verifications Anesthesia Reactions: No Hx Blood Transfusions: No Blood Transfusion Reaction: No - Airway Assessment C-Spine Mobility Assessed: Yes TMJ Mobility Assessed: Yes Dentition: Good Dentition - Neurological Assessment Level of Consciousness: Awake, Alert, Appropriate - Anesthesia Plan Anesthesia Risk discussed: Yes Anesthesia Plan: Verified ASA Class: II Anesthesia Type: Epidural [facility] History I have reviewed the patient's past medical history: Yes Medical History: Denies:: Cancer, Diabetes Mellitus Type 1, Diabetes Mellitus Type 2, Internal Pacemaker, MRSA, Seizures *Have you ever received a pneumonia vaccine?: No *Have you received a flu vaccine this season?: No Other Medical History: Denies: Blood Transfusion Reaction Anesthesia experience/problems:: none Laterality Cases: Bilateral: Tonsillectomy Other Surgeries: Yes: Other. No: , Pacemaker Amputation: No Fractures: No - *Social History Smoking Status: Never smoker Alcohol Intake: never Alcohol Intake Frequency:: other Substance Use Type: denies use *Occupational Status:: unemployed Housing: house Household Members: significant other *Travel in the last 8 weeks: None Family Hx:: No significant family history Para: 0
[2020-09-26 11:31] VITALS: BP 101/75; PULSE 75; RESP 18; TEMP 36.7
--- NOTE | 2020-09-26 11:34 | HMH.LABNOT ---
Labor Note - Subjective: Date: 09/26/20 Time: 11:34 regular contraction - Objective: NST:: Reactive Contractions:: every 2-3 minutes Cervical Dilation:: 6 Effacement:: 100% Station: 0 Membranes: artificially ruptured - Fetus: Monitoring?: Yes monitoring type:: Internal and External - Assessment: Labor progressing?: Yes Cephalopelvic disproportion?: No Patient Problems: All Active Problems Threatened (Acute) Normal delivery at term (Acute) First in adolescent 16 years of age or older (Acute) (Acute) - Plan: Anesthesia for epidural?: Yes Continue to labor down?: Yes Plan for ?: No Continue to monitor?: Yes Start pushing?: No
[2020-09-26 13:41] LABS: Cord Blood PH 7.31 (7.35-7.45)
--- NOTE | 2020-09-26 14:00 | HMH.DN ---
- Delivery Note Delivery Date:: 09/26/20 Delivery Time:: 13:29 Anesthesia Type: Epidural Was labor medically induced?: Yes Induction method: per pitocin protocol Gestational age (weeks): 39 delivered prior to 39 weeks?: No Gender: Female at 1 minute: 8 at 5 minutes: 9 LAC or MLE?: LAC Delivery Procedure:: She is a 19-year-old 2 para 0 aborta 1 who was 39+ weeks gestational age. She was feeling lots of pressure and was found to be 4 cm in my office. As result of that we elected to induce her labor at term. She was started on IV oxytocin and had her membranes ruptured. Under labor epidural she progressed to full dilation and delivered spontaneously a liveborn female child at 1:27 PM in the afternoon of September 26, 2020. On deliver the head the anterior shoulder easily delivered followed by the rest the 's body atraumatically. The nasopharynx and oropharynx were bulb suction. The baby was vigorous. We allowed the cord to continue to pulsate for approximately 1 minute. The cord was then doubly clamped and cut and the infant was then placed on the mother's abdomen for further care. The nurses assigned Apgars of 8 at 1 minute and 9 at 5 minutes. We then obtained cord blood as well as cord pH. She received IV oxytocin and using gentle traction on the cord and countertraction the fundus I was able to easily deliver the placenta intact. Had a normal three-vessel cord. She had a small second-degree perineal laceration that was repaired with 3-0 Vicryl Rapide suture to the superficial tissues and 2-0 Vicryl suture to the deep tissues of the perineum. Her estimated blood loss was approximately 350 cc. She plans to breast-feed. Laceration:: vaginal Placental Delivery Description: Spontaneous
[2020-09-26 16:06] VITALS: BP 115/66; PULSE 95; RESP 17; TEMP 37; O2SAT 100
[2020-09-26 20:00] VITALS: BP 117/76; PULSE 70; RESP 17; TEMP 36.4; O2SAT 100
[2020-09-27 04:00] VITALS: BP 108/59; PULSE 80; RESP 16; TEMP 36.6; O2SAT 98
[2020-09-27 06:43] LABS: Hematocrit 25.6 % (37.0-47.0); Hemoglobin 8.4 g/dL (12.2-16.2)
[2020-09-27 07:59] VITALS: BP 112/56; PULSE 79; RESP 16; TEMP 36.6; O2SAT 98
--- NOTE | 2020-09-27 08:53 | HMH.ACPN2 ---
Internal Medicine - PN: Subj *Date: 09/27/20 *Time: 08:53 Interval history: She continues to do very well. She is eating and drinking and ambulating. She is bottlefeeding. Her lochia is normal. Her hemoglobin is 8.4 and it was 10.1 prior to delivery. She lost a minimal amount of blood at the time of her delivery. We will make sure that she takes iron when she gets home. We will plan to send her home tomorrow. Exam Vital signs and Labs for Last 24 Hours: Temp Pulse Resp BP Pulse Ox 97.9 F 79 16 112/56 L 98 09/27/20 07:59 09/27/20 07:59 09/27/20 07:59 09/27/20 07:59 09/27/20 07:59 Laboratory Results - last 24 hr 09/26/20 13:38: Cord ABG pH 7.31 L 09/27/20 06:24: Hgb 8.4 L, Hct 25.6 L I & O for Last 24 hours: Intake & Output 09/24/20 09/25/20 09/26/20 09/27/20 11:59 11:59 11:59 11:59 Weight 140 lb 0.002 oz Microbiology Reports for the Last 24 Hours: Microbiology 09/26/20 05:10 Urine,Clean Catch Urine Culture - Preliminary NO GROWTH AFTER 24 HOURS - Constitutional no acute distress - *Routine HEENT Exam Head: Present: normocephalic Eye: Present: EOMI, PERRL ENT: Present: mucous membranes moist Assessment and Plan (1) Normal delivery at term Status: Acute Category: Medical Code(s): O80 - Encounter for full-term uncomplicated delivery (2) First in adolescent 16 years of age or older Status: Acute Category: Medical Code(s): Z34.00 - Encounter for supervision of normal first , unspecified trimester (3) Anemia, Status: Acute Category: Medical Code(s): O90.81 - Anemia of the puerperium - Assessment and plan all Dx Assessment and Plan for all problems:: She is doing very well. We will plan to send her home tomorrow. She is asymptomatic with respect to her anemia. I suspect some of the decreased hemoglobin is related to dilution of her blood.
[2020-09-27 12:18] VITALS: BP 121/56; PULSE 83; RESP 16; TEMP 37; O2SAT 99
--- NOTE | 2020-09-27 14:29 | SW/DCPLANNER ---
RECEIVED REFERRAL ON THIS PATIENT FOR TEENAGE ... I WENT IN TO SEE PATIENT AND TODAY, FATHER OF BABY WAS ALSO AT BEDSIDE.. PATIENT HAS NO KNOWN DRUG HISTORY, SHE HAD A VAGINAL DELIVERY AND DELIVERED A LIVE BORN FEMALE.. BOTH AND PATIENT ARE DOING WELL..SHE IS MOST APPROPRIATE WITH INFANT AND SO IS FATHER.. SHE NAMED INFANT RICHA BRICENO, PATIENT IS BREAST FEEDING AND ALSO RECEIVES [facility]..SHE HAS CHOSEN DR GUAJARDO INFANTS DOCTOR. PATIENTS SIGNIFICANT OTHER STATED THEY LIVE WITH HIS PARENTS AND HAVE AMPLE ROOM FOR A NURSERY AND HAVE EVERYTHING THEY NEED TO TAKE THE INFANT HOME.. PATIENT IS DISCHARGING HOME IN THE MORNING.. EXTENDED FAMILY IS ALSO VERY SUPPORTIVE OF THIS YOUNG COUPLE...
[2020-09-27 16:40] VITALS: BP 117/55; PULSE 85; RESP 18; TEMP 37.3; O2SAT 98
[2020-09-27 20:35] VITALS: BP 121/60; PULSE 98; RESP 18; TEMP 36.8; O2SAT 99
[2020-09-28 04:56] VITALS: BP 116/58; PULSE 94; RESP 18; TEMP 36.7; O2SAT 98
[2020-09-28 08:00] VITALS: BP 124/69; PULSE 95; RESP 16; TEMP 36.5; O2SAT 98
--- NOTE | 2020-09-28 09:30 | HMH.OBDCSM ---
General - General Admission date:: 09/26/20 Discharge date: 09/28/20 HPI - History of Present Illness History of present illness: She is a 19-year-old 2 para 0 aborta 1 at 39 and 2 weeks gestational age. She was brought in for induction of labor at term. She was feeling lots of pressure. Hospital Course Hospital Course: She was started on IV oxytocin had her membranes ruptured. Under labor epidural she progressed to full dilation and delivered spontaneously a liveborn female child at 1:27 PM in the afternoon of September 26, 2020. Baby weighed 7 pounds 9 ounces and was 19 inches long. She had Apgars of 8 at 1 minute and 9 at 5 minutes. She has a small second-degree perineal laceration. She has done well and has remained afebrile throughout her hospitalization. She is eating and drinking and ambulating. She is breast-feeding. Her lochia is normal. She has O+ blood, she is rubella immune and was group B streptococcus negative. Her plaster pattern caster Dr. Joseph. She is discharged home to follow-up with me in approximately 2 weeks time. She will continue with her vitamins and iron. She is taking uhjr-hzb-[id number] analgesics. She was given the usual instructions with respect to limiting her activity, driving and sexual activity. Her condition on discharge is stable and improved. Rhogam Administration: Not Indicated Objective Vital signs: Temp Pulse Resp BP Pulse Ox 98.1 F 94 H 18 116/58 L 98 09/28/20 04:56 09/28/20 04:56 09/28/20 04:56 09/28/20 04:56 09/28/20 04:56 no acute distress - *Routine HEENT Exam Head: Present: normocephalic Eye: Present: EOMI, PERRL ENT: Present: mucous membranes moist DS: Diagnosis - Discharge Diagnosis (1) Normal delivery at term Status: Acute (2) First in adolescent 16 years of age or older Status: Acute (3) Anemia, Status: Acute Discharge Plan - Patient Discharge Instructions ACTIVITY: No heavy lifting DIET: continue same diet Additional Instructions: NOTHING IN VAGINA FOR 6 WEEKS NO HEAVY LIFTING OR STRENUOUS ACTIVITY FOLLOW-UP WITH DR. BARRAGAN ON Patient Instructions: Depression, Hemorrhage, DI for Labor and Delivery, Vaginal , DI for Pre-eclampsia, [facility] Post Discharge Instructions, Preventing the Spread of Coronavirus Discharge Instructions - Follow up Plan Disposition: Home, Self-Care Condition at discharge:: Improved Home Medications: Home Medications Medication Instructions Recorded Confirmed Type prenat.vits,lilly,hit-npci-njyhu 1 tab PO DAILY 03/17/19 09/26/20 History loratadine 10 mg tablet 10 mg PO DAILYP PRN tab 05/17/20 09/26/20 History Ferrous Sulfate 325 mg PO DAILY 09/26/20 09/26/20 History Prescriptions/Medication Reconciliation: Continued prenat.vits,lilly,gba-htya-ducxx 1 tab PO DAILY loratadine 10 mg tablet 10 mg PO DAILYP PRN tab PRN Reason: allergy symptoms Ferrous Sulfate 325 mg PO DAILY - Problem Reconciliation Problems Reviewed?: Yes
== END 2020-09-28 12:20 | disposition home or self-care (01) | DRG 807 ==
PROVIDERS: Admitting Provider Nurse Practitioner Obstetrics & Gynecology; PCP Internal Medicine Adolescent Medicine; Visit Provider Nurse Practitioner Obstetrics & Gynecology
DX: O70.1 Second degree perineal laceration during delivery (principal); Z37.0 Single live birth; Z3A.39 39 weeks gestation of pregnancy
CPT/HCPCS: 59409; 36415; 59025; 80305; 81001; 82800; 85014; 85018; 85025; 86850; 87086; 94761; C1758; G0283; U0003

== ENCOUNTER → 2020-10-24 16:57 | Outpatient (CLI) | payer OTHER, SELFPAY ==
[2020-10-24 18:29] LABS: Alanine Aminotransferase 16 U/L (12-78); Albumin Level 4.1 g/dl (3.5-5.0); Albumin/Globulin Ratio 1.6 (1.1-1.8); Alkaline Phosphatase 96 U/L (38-126); Anion Gap 9.3 mEq/L (5-15); Aspartate Amino Transferase 25 U/L (14-36); Bilirubin,Total 0.5 mg/dl (0.2-1.3); Blood Urea Nitrogen 7 mg/dl (7-17); Carbon Dioxide 29 mmol/L (22.0-30.0); Chloride 107 mmol/L (98-107); Estimated Glomerular Filt Rate 107 ml/min (>60); GFR (African American) 129 ML/MIN (>60); Globulin 2.5 g/dL (1.3-3.2); Glucose 74 mg/dl (74-100); Lipase 99 U/L (23-300); Potassium 4.3 mmoL/L (3.5-5.1); Sodium 141 mmol/L (136-145); Total Protein,Serum 6.6 g/dl (6.3-8.2)
== END ==
PROVIDERS: Visit Provider Internal Medicine Adolescent Medicine
DX: R10.10 Upper abdominal pain, unspecified (principal)
CPT/HCPCS: 80053; 83690

== ENCOUNTER → 2020-11-02 08:57 | Outpatient (CLI) | payer OTHER, SELFPAY ==
--- NOTE | 2020-11-02 09:02 | US_ITS ---
PROCEDURE: US ABDOMEN LIMITED CLINICAL INDICATION: PAIN OF UPPER ABD COMPARISON: No exams were available for comparison FINDINGS: PANCREAS: Unremarkable. No obvious mass or abnormal fluid collection. No ductal dilatation LIVER: No focal liver lesions demonstrated. Homogeneous echogenicity. No intrahepatic biliary ductal dilatation evident. There is appropriate direction of blood flow within a non dilated portal vein RIGHT KIDNEY: Unremarkable. Normal size and echogenicity. No hydronephrosis GALLBLADDER: No gallstones, gallbladder wall thickening, pericholecystic fluid, or biliary dilatation. Small amount of sludge noted in the gallbladder. IMPRESSION: Small amount of sludge in the gallbladder. Otherwise unremarkable limited abdominal ultrasound as detailed above. Dictated by: Saad Barney MD 11/02/2020 10:42 Saad Barney MD in [facility] 11/02/2020 10:42
[2020-11-03 16:21] LABS: H. pylori Breath Test Negative (Negative)
== END ==
PROVIDERS: PCP Internal Medicine Adolescent Medicine; Visit Provider Internal Medicine Adolescent Medicine
DX: R10.10 Upper abdominal pain, unspecified (principal)
CPT/HCPCS: 36415; 76705; 83013

== ENCOUNTER → 2020-11-25 07:42 | Outpatient (CLI) | payer OTHER, SELFPAY ==
--- NOTE | 2020-11-25 10:20 | CT_ITS ---
PROCEDURE: CT ABDOMEN PELVIS W CON CLINICAL INDICATION: LT UPPER QUAD PAIN COMPARISON: No exams were available for comparison TECHNIQUE: IV Contrast: 75ML Isovue 370 Oral Contrast 450ml Redicat Axial images obtained with sagittal and coronal reformats. All CT scans at the facility use one or more dose reduction, viz: automated exposure control, ma/kV adjustment per patient size (including targeted exams where dose is matched to indication, i.e. head), or iterative reconstruction technique. FINDINGS: LOWER THORAX: No acute finding ABDOMEN & PELVIS: The liver, spleen, adrenal glands, pancreas, gallbladder, have an unremarkable appearance. No renal or ureteral calculi. No hydronephrosis. There is minimal prominence of the renal pelves on both sides nonspecific. No intestinal obstruction or free air. There is a moderate amount of retained colonic feces. No evidence of appendicitis. There is a small amount fluid in the cul-de-sac. The uterus is retroverted with slight prominence of the low-density changes of the endometrium. The uterus is somewhat patulous but could be related to the post gravid state. The anterior abdominal wall has an unremarkable appearance. No acute fracture. IMPRESSION: No acute abdominal or pelvic findings. There is a moderate amount of retained colonic feces. Slightly prominent patulous appearing uterus with mild prominence of the low-density endometrium. These findings are nonspecific and may be related to post gravid state. Small amount of cul-de-sac fluid nonspecific. Dictated by: Wilfredo Carrion MD 11/25/2020 13:39 Wilfredo Carrion MD in [facility] 11/25/2020 13:39
== END ==
PROVIDERS: PCP Internal Medicine Adolescent Medicine; Visit Provider Internal Medicine Adolescent Medicine
DX: R10.12 Left upper quadrant pain (principal)
CPT/HCPCS: 74177; Q9967

== ENCOUNTER → 2021-12-15 10:03 | Outpatient (CLI) | payer OTHER, SELFPAY ==
--- NOTE | 2021-12-15 10:08 | US_ITS ---
FINAL REPORT TECHNIQUE: Sonographic images of the right upper quadrant were obtained. CLINICAL HISTORY: RUQ PAIN....ABDOMINAL TENDERNESS WITHOUT REBOUND FINDINGS: The liver is homogeneous. There is no focal hepatic lesion or intrahepatic biliary dilatation. The gallbladder is well filled. There are no gallstones. There is no pericholecystic fluid collection or gallbladder wall thickening. The common duct measures 3 mm which is within normal limits. The pancreatic tail is partially obscured by bowel gas. Otherwise, it has a normal appearance. The right kidney measures 9.6cm in tgdr-wc-yqha length. There is no hydronephrosis, mass, or stone. There is no right upper quadrant ascites. IMPRESSION: Unremarkable right upper quadrant ultrasound. No gallstones, pericholecystic fluid collection, or gallbladder wall thickening. Reviewed, Interpreted and Dictated by Stephany Ordonez MD Transcribed by Princess Davies Authenticated and [facility]
--- NOTE | 2021-12-15 10:21 | NM_ITS ---
FINAL REPORT CLINICAL HISTORY: RUQ TENDERNESS WITHOUT REBOUND TENDERNESS since september 10:55 am 7.81 mci tc choletec 1.0 mcg of cck injected into rt ant no pain during cck FINDINGS: Sequential anterior projection images of the abdomen were obtained after the intravenous injection of 7.81 mCi technetium 99m Choletec. There is normal uptake of radiotracer by the liver. The bile ducts , gallbladder, and bowel visualize normally. After 1 hour, 1.0 ?g of CCK was injected intravenously for calculation of gallbladder ejection fraction. The gallbladder ejection fraction is 81 %, which is within normal limits. IMPRESSION: No evidence of cystic duct or bile duct obstruction. Normal gallbladder ejection fraction of 81 %. Reviewed, Interpreted and Dictated by Terell Salas III, MD Transcribed by Rodolfo Izaguirre Authenticated and [facility]
== END ==
PROVIDERS: PCP Internal Medicine Adolescent Medicine; Visit Provider Nurse Practitioner Family
DX: R10.11 Right upper quadrant pain (principal); R10.811 Right upper quadrant abdominal tenderness
CPT/HCPCS: 76705; 78227; A9537; J2805

== ENCOUNTER → 2022-01-02 11:02 | Outpatient (CLI) | payer OTHER, SELFPAY ==
[2022-01-02 13:42] LABS: HCG,Quantitative < 2 mIU/ml (0-5.42)
== END ==
PROVIDERS: PCP Internal Medicine Adolescent Medicine; Visit Provider Nurse Practitioner Obstetrics & Gynecology
DX: N92.6 Irregular menstruation, unspecified (principal)
CPT/HCPCS: 36415; 84702

== ENCOUNTER → 2022-01-30 10:27 | Outpatient (CLI) | payer OTHER, SELFPAY ==
--- NOTE | 2022-01-30 10:27 | US_ITS ---
FINAL REPORT CLINICAL HISTORY: right side abdominal pain FINDINGS: Transvaginal sonographic images of the pelvis were obtained. The uterus measures 7.4 x 5.7 x 4.5 cm. The endometrium measures 6 mm, which is within normal limits. No uterine mass is identified. The right ovary measures 3.8 cm cm in length and left ovary measures 2.7 cm cm in length. Normal blood flow seen to the ovaries. There is a 3.6 cm right ovarian cyst. There is no evidence of free fluid. IMPRESSION: 3.6 cm right ovarian cyst. Reviewed, Interpreted and Dictated by Terell Salas III, MD Transcribed by Keiry Quevedo Authenticated and [facility]
== END ==
PROVIDERS: PCP Internal Medicine Adolescent Medicine; Visit Provider Nurse Practitioner Obstetrics & Gynecology
DX: R10.31 Right lower quadrant pain (principal)
CPT/HCPCS: 76830

== ENCOUNTER → 2022-03-19 11:11 | Outpatient (CLI) | payer OTHER, SELFPAY ==
--- NOTE | 2022-03-19 11:11 | US_ITS ---
FINAL REPORT CLINICAL HISTORY: ovarian cyst FINDINGS: Transvaginal sonographic images of the pelvis were obtained. The uterus measures 7.3 x 6.4 x 4.3 cm. The endometrium measures 8 mm, which is within normal limits. No uterine mass is identified. The right ovary measures 3.5 cm in length and left ovary measures 2.2 cm in length. Normal blood flow seen to the ovaries. Small follicles are present. Dominant right ovarian cyst measures 3.2 cm. Small amount of pelvic free fluid. IMPRESSION: No acute abnormality identified. Reviewed, Interpreted and Dictated by Terell Salas III, MD Transcribed by Rodolfo Izaguirre Authenticated and [facility]
== END ==
PROVIDERS: PCP Internal Medicine Adolescent Medicine; Visit Provider Nurse Practitioner Obstetrics & Gynecology
DX: N83.201 Unspecified ovarian cyst, right side (principal)
CPT/HCPCS: 76830

== ENCOUNTER → 2022-07-30 07:36 | Outpatient (CLI) | payer OTHER, SELFPAY ==
--- NOTE | 2022-07-30 07:44 | US_ITS ---
FINAL REPORT CLINICAL HISTORY: for dates FINDINGS: Sonographic images of the pelvis were obtained. A small gestational sac versus a pseudo gestational sac is present within the uterus. The mean sac diameter measures 0.37 cm corresponding with 4 weeks 6 day gestation. No pole is identified. No yolk sac is identified. The left ovary measures 3.6 cm with a 1.5 cm complex mass which may represent a complex cyst. There is prominent peripheral left ovary vascularity. The right ovary measures 2.1 cm in length. There is a small hyperechoic focus adjacent to it of uncertain significance. This could represent a focus of fat or a small mass. This measures 6 mm. There is a small amount of free fluid. IMPRESSION: Questionable small gestational sac versus pseudo gestational sac without yolk sac or pole. This can be further evaluated with a follow-up ultrasound. Abnormal appearance of the left ovary with a 1.5 cm complex mass with in it and prominent peripheral vascularity. An ectopic is not excluded. This can also be further evaluated with follow-up ultrasound. Small amount of free fluid is physiologic or reactive. Reviewed, Interpreted and Dictated by Terell Salas III, MD Transcribed by Keiry Quevedo Authenticated and [facility]
[2022-07-30 08:42] LABS: HCG,Quantitative 1370 mIU/ml (0-5.42)
[2022-07-31 08:15] LABS: Progesterone 13.3 ng/mL (.)
== END ==
PROVIDERS: PCP Internal Medicine Adolescent Medicine; Visit Provider Nurse Practitioner Obstetrics & Gynecology
DX: Z34.90 Encounter for supervision of normal pregnancy, unspecified, unspecified trimester (principal)
CPT/HCPCS: 36415; 76801; 84144; 84702

== ENCOUNTER → 2022-08-02 09:03 | Outpatient (CLI) | payer OTHER, SELFPAY ==
[2022-08-02 10:50] LABS: HCG,Quantitative 4739 mIU/ml (0-5.42)
== END ==
PROVIDERS: PCP Internal Medicine Adolescent Medicine; Visit Provider Nurse Practitioner Obstetrics & Gynecology
DX: Z34.90 Encounter for supervision of normal pregnancy, unspecified, unspecified trimester (principal); Z3A.08 8 weeks gestation of pregnancy
CPT/HCPCS: 36415; 84702

== ENCOUNTER → 2022-08-07 09:45 | Outpatient (CLI) | payer OTHER, SELFPAY | PROVIDERS: Visit Provider Nurse Practitioner Obstetrics & Gynecology | DX: Z34.90 Encounter for supervision of normal pregnancy, unspecified, unspecified trimester (principal) | CPT/HCPCS: 87086 ==

== ENCOUNTER → 2022-08-21 08:40 | Outpatient (CLI) | payer OTHER, SELFPAY ==
--- NOTE | 2022-08-21 08:40 | US_ITS ---
FINAL REPORT CLINICAL HISTORY: US OB before 14 wks for DATES and Confirmation FINDINGS: Sonographic images of the pelvis were obtained. A single, living intrauterine is noted. A yolk sac is present and measures 0.49 cm. [place] to rump length measures 14.2 cm which corresponds to 7 weeks 6 days gestation. Heartbeat is identified and measures 144 beats per minute. The uterus is retroverted. The amniotic fluid demonstrates multiple internal echoes. The right ovary is within normal limits. There are hypoechoic foci in the left ovary measuring up to 1.5 cm and may represent complex cysts. IMPRESSION: Single, living, intrauterine gestation with 7 weeks 6 days gestational age. Internal echoes within the amniotic fluid of uncertain significance. Findings could be related to amniotic scarring or bands. Follow-up ultrasound recommended. Reviewed, Interpreted and Dictated by Thomas Martinez MD Transcribed by Keiry Quevedo Authenticated and [facility][1]
[2022-08-21 09:51] LABS: Basophils % 0.5 % (0.1-2.0); Eosinophils % 0.7 % (0.1-12.0); Hemoglobin 11.6 g/dL (12.2-16.2); Lymphocytes # 1.2 K/mm3 (0.7-4.5); Lymphocytes % 18.9 % (10-50); Mean Corpuscular HGB Conc 32.3 g/dL (31.8-35.4); Mean Corpuscular Hemoglobin 31.2 pg (27.0-31.2); Mean Corpuscular Volume 96.6 fl (81-99); Mean Platelet Volume 9.2 fl (7.4-10.4); Monocytes # 0.3 K/mm3 (0.1-1.0); Neutrophils # 4.8 K/mm3 (1.8-7.8); Platelet Count 184 K/mm3 (142-424); Red Blood Count 3.72 M/mm3 (4.20-5.40); Red Cell Distribution Width 13.3 % (11.5-17.5); White Blood Count 6.3 K/mm3 (4.8-10.8)
[2022-08-22 10:05] LABS: Rubella Antibodies, IgG <0.90 index (Immune >0.99)
[2022-08-22 10:12] LABS: HIV Screen 4th Generation wRfx Non Reactive (Non Reactive)
[2022-08-23 04:40] LABS: Hepatitis B Surface Antigen NEGATIVE; Hepatitis C Antibody NON REACTIVE; Rapid Plasma Reagin Ab Titer NON REACTIVE
== END ==
PROVIDERS: Visit Provider Nurse Practitioner Obstetrics & Gynecology
DX: O26.841 Uterine size-date discrepancy, first trimester (principal); Z34.90 Encounter for supervision of normal pregnancy, unspecified, unspecified trimester
CPT/HCPCS: 36415; 76801; 85025; 86593; 86703; 86762; 86850; 87340; 87380; G0432

== ENCOUNTER → 2022-09-11 17:10 | Outpatient (CLI) | payer OTHER, SELFPAY ==
[2022-09-14 05:34] LABS: Neisseria gonorrhoeae, NAA Negative (Negative)
== END ==
PROVIDERS: Visit Provider Nurse Practitioner Obstetrics & Gynecology
DX: Z34.90 Encounter for supervision of normal pregnancy, unspecified, unspecified trimester (principal)
CPT/HCPCS: 87491; 87591

== ENCOUNTER 2022-10-19 10:47 | Outpatient (CLI) | payer OTHER, SELFPAY ==
[2022-10-19 10:59] VITALS: BMI 19.0
[2022-10-19 11:25] VITALS: BP 99/54; PULSE 81; RESP 16; O2SAT 100
[2022-10-19 11:30] LABS: Basophils % 0.2 % (0.1-2.0); Eosinophils # 0.1 K/mm3 (0.0-0.4); Eosinophils % 0.8 % (0.1-12.0); Hematocrit 37.3 % (37.0-47.0); Hemoglobin 12.4 g/dL (12.2-16.2); Lymphocytes # 1.1 K/mm3 (0.7-4.5); Lymphocytes % 14.4 % (10-50); Mean Corpuscular HGB Conc 33.1 g/dL (31.8-35.4); Mean Corpuscular Hemoglobin 31.4 pg (27.0-31.2); Mean Platelet Volume 9.6 fl (7.4-10.4); Monocytes # 0.3 K/mm3 (0.1-1.0); Monocytes % 3.7 % (1.7-9.3); Neutrophils # 6.1 K/mm3 (1.8-7.8); Neutrophils % 80.9 % (37.0-80.0); Platelet Count 191 K/mm3 (142-424); Red Blood Count 3.93 M/mm3 (4.20-5.40); Red Cell Distribution Width 13.6 % (11.5-17.5); White Blood Count 7.5 K/mm3 (4.8-10.8)
[2022-10-19 11:42] LABS: Anion Gap 11.9 mEq/L (5-15); Blood Urea Nitrogen 6 mg/dl (7-17); Calcium 8.5 mg/dl (8.4-10.2); Carbon Dioxide 26 mmol/L (22.0-30.0); Chloride 104 mmol/L (98-107); Creatinine Clearance Estimated 175 mL/min (50-200); Estimated Glomerular Filt Rate 200 ml/min (>60); GFR (African American) 242 ML/MIN (>60); Glucose 80 mg/dl (74-100); Potassium 3.9 mmoL/L (3.5-5.1); Sodium 138 mmol/L (136-145)
[2022-10-19 12:25] VITALS: BP 86/58; PULSE 71; RESP 16
== END 2022-10-19 12:25 | disposition home or self-care (01) ==
LOC: INF 10:47
PROVIDERS: PCP Internal Medicine Adolescent Medicine; Visit Provider Nurse Practitioner Obstetrics & Gynecology
DX: O21.9 Vomiting of pregnancy, unspecified (principal)
CPT/HCPCS: 80048; 85025; 96360; 96375; J2405

== ENCOUNTER → 2022-11-13 12:44 | Outpatient (CLI) | payer OTHER, SELFPAY ==
--- NOTE | 2022-11-13 12:44 | US_ITS ---
PROCEDURE: US OB /MATERNAL DETAIL CLINICAL INDICATION: 20 week anatomy scan COMPARISON: US US OB <= 14 WEEKS FETUS from 08/21/2022 FINDINGS: From her established due date she is 20 weeks 0 days. Single viable intrauterine gestation. Breech position. Placenta: Low-lying posteriorplacenta grade 1. 1.7 cm from the cervical internal os There is average amount fluid. The cervix appears satisfactory. Closed and measuring 4.1 cm in length. Complete survey performed and was unremarkable on the submitted images as in PACS. No discrete anomalies identified on survey imaging by technologist. Active fetus. Three-vessel cord with satisfactory umbilical cord insertion. 4- chamber heart noted. LVOT, RVOT normal Survey of brain & ventricles Unremarkable. Thalamus, choroid plexus appear normal Face and neck survey unremarkable. Profile, nasion appear normal. Nose and lips appear normal. Diaphragm and chest views unremarkable. Abdomen: Both kidneys noted and unremarkable. Stomach noted and satisfactory. Bladder appears normal. Spine: Survey of the spine satisfactory with no anomalies identified nor imaged. Upper, thoracic and lower spine appear normal Both arms and legs noted. Amniotic Fluid: Adequate. Measurements: Average ultrasound age 19weeks 5days. Gestational Age 19weeks 5days Estimated due date by ultrasound age 1104/04/2023. Estimated weight 301g BPD = 19weeks 6days OFD = 20weeks HC = 19weeks 1day AC = 19weeks 4days FL = 19weeks 6days Growth Percentile= 29Percent Heart Rate = 153bpm Cerebellum = Humerus = 20weeks HC/AC is 1.16 CI is 0.79 FL/BPD is 0.69 FL/AC is 0.22 IMPRESSION: 1. Fetus in the breech presentation with a posterior placenta grade 1. 2. The placenta is posterior and LOW LYING. It is 1.7 cm from the internal cervical os. SUGGEST REPEAT SCAN AT 28 WEEKS. 3. Anatomical scan appears normal. 4. Size and dates are appropriate. Dictated by: Stanford Esparza MD 11/13/2022 16:02 Stanford Esparza MD in [facility] 11/13/2022 16:02
== END ==
PROVIDERS: PCP Internal Medicine Adolescent Medicine; Visit Provider Nurse Practitioner Obstetrics & Gynecology
DX: Z34.92 Encounter for supervision of normal pregnancy, unspecified, second trimester (principal); Z3A.20 20 weeks gestation of pregnancy
CPT/HCPCS: 76811

== ENCOUNTER → 2022-12-05 11:25 | Outpatient (CLI) | payer OTHER, SELFPAY | PROVIDERS: PCP Internal Medicine Adolescent Medicine; Visit Provider Nurse Practitioner Obstetrics & Gynecology | DX: O26.619 Liver and biliary tract disorders in pregnancy, unspecified trimester (principal) | CPT/HCPCS: 36415 ==

== ENCOUNTER → 2022-12-06 08:59 | Outpatient (CLI) | payer OTHER, SELFPAY ==
[2022-12-06 10:45] LABS: Alanine Aminotransferase 12 U/L (12-78); Albumin Level 3.6 g/dl (3.5-5.0); Albumin/Globulin Ratio 1.3 (1.1-1.8); Alkaline Phosphatase 64 U/L (38-126); Anion Gap 8.9 mEq/L (5-15); Aspartate Amino Transferase 19 U/L (14-36); Bilirubin,Total 0.4 mg/dl (0.2-1.3); Blood Urea Nitrogen 5 mg/dl (7-17); Calcium 8.5 mg/dl (8.4-10.2); Carbon Dioxide 25 mmol/L (22.0-30.0); Chloride 107 mmol/L (98-107); Estimated Glomerular Filt Rate 154 ml/min (>60); GFR (African American) 187 ML/MIN (>60); Globulin 2.7 g/dL (1.3-3.2); Glucose 74 mg/dl (74-100); Potassium 3.9 mmoL/L (3.5-5.1); Sodium 137 mmol/L (136-145); Total Protein,Serum 6.3 g/dl (6.3-8.2)
[2022-12-06 16:24] LABS: Basophils % 0.2 % (0.1-2.0); Eosinophils # 0.2 K/mm3 (0.0-0.4); Eosinophils % 2.3 % (0.1-12.0); Hematocrit 35.1 % (37.0-47.0); Lymphocytes # 1.2 K/mm3 (0.7-4.5); Lymphocytes % 13.4 % (10-50); Mean Corpuscular HGB Conc 31.5 g/dL (31.8-35.4); Mean Corpuscular Hemoglobin 30.8 pg (27.0-31.2); Mean Corpuscular Volume 97.6 fl (81-99); Mean Platelet Volume 10.2 fl (7.4-10.4); Monocytes # 0.3 K/mm3 (0.1-1.0); Monocytes % 3.4 % (1.7-9.3); Neutrophils % 80.7 % (37.0-80.0); Platelet Count 198 K/mm3 (142-424); Red Blood Count 3.59 M/mm3 (4.20-5.40); Red Cell Distribution Width 13.9 % (11.5-17.5); White Blood Count 8.7 K/mm3 (4.8-10.8)
[2022-12-19 10:55] LABS: Bile Acids 3.6
== END ==
PROVIDERS: PCP Internal Medicine Adolescent Medicine; Visit Provider Nurse Practitioner Obstetrics & Gynecology
DX: K83.1 Obstruction of bile duct (principal); O26.612 Liver and biliary tract disorders in pregnancy, second trimester; Z3A.23 23 weeks gestation of pregnancy
CPT/HCPCS: 36415; 80053; 82239; 85025

== ENCOUNTER → 2022-12-26 07:15 | Outpatient (CLI) | payer OTHER, SELFPAY ==
[2022-12-26 07:47] LABS: Basophils % 0.1 % (0.1-2.0); Eosinophils # 0.1 K/mm3 (0.0-0.4); Eosinophils % 1.1 % (0.1-12.0); Hematocrit 33.2 % (37.0-47.0); Hemoglobin 10.8 g/dL (12.2-16.2); Lymphocytes # 1.8 K/mm3 (0.7-4.5); Lymphocytes % 19.5 % (10-50); Mean Corpuscular HGB Conc 32.6 g/dL (31.8-35.4); Mean Corpuscular Hemoglobin 31.4 pg (27.0-31.2); Mean Corpuscular Volume 96.3 fl (81-99); Mean Platelet Volume 9.1 fl (7.4-10.4); Monocytes # 0.4 K/mm3 (0.1-1.0); Monocytes % 3.8 % (1.7-9.3); Neutrophils % 75.5 % (37.0-80.0); Platelet Count 233 K/mm3 (142-424); Red Blood Count 3.45 M/mm3 (4.20-5.40); Red Cell Distribution Width 14.2 % (11.5-17.5); White Blood Count 9.3 K/mm3 (4.8-10.8)
[2022-12-26 08:21] LABS: Glucose,Fasting 76 mg/dl (74-100)
[2022-12-26 12:02] LABS: Glucose 1 Hour 40 mg/dL (74-100)
== END ==
PROVIDERS: PCP Internal Medicine Adolescent Medicine; Visit Provider Nurse Practitioner Obstetrics & Gynecology
DX: Z34.92 Encounter for supervision of normal pregnancy, unspecified, second trimester (principal); Z3A.25 25 weeks gestation of pregnancy
CPT/HCPCS: 36415; 82951; 85025

== ENCOUNTER → 2023-01-09 12:40 | Outpatient (CLI) | payer OTHER, SELFPAY ==
--- NOTE | 2023-01-09 12:40 | US_ITS ---
PROCEDURE: US OB BIOPHYSICAL PROFILE CLINICAL INDICATION: Lo lying placenta COMPARISON: Complete anatomical ultrasound November 13, 2022. FINDINGS: Transabdominal sonographic images of the uterus were obtained. From her established due date she is 28weeks 1day. The following parameters are obtained: Viable fetus in the cephalic presentation with a posterior placenta grade 1. Placenta is 2.4 cm away from the internal os transvaginally. Cervix measures 3.7 cm transvaginally. Average ultrasound age is 28weeks 1day. Estimated due date by ultrasound is 04/02/2023. Estimated weight is 2lb 7.75oz. 25th percentile. heart rate: 142bpm bpm. BPD: 28 weeks 0 days HC: 28 weeks 5 days AC: 27 weeks 3 days FL: 28 weeks 2 days HC/AC: 1.15 Cephalic index: FL/BPD: 0.77 FL/AC: 0.23 Amniotic fluid index: 9.58cm Qualitative AFV: 2 breathing movements: 2 Gross body movements: 2 Tone: 2 Biophysical profile score: 8 No obvious anomalies evident.Kidneys, four-chamber heart, LVOT, profile, nasion, lips, nose, three-vessel cord appear normal. IMPRESSION: 1. Viable fetus in the cephalic presentation with a posterior placenta grade 1. 2. The placenta has now moved away and is 2.35 centimeters from the internal os. 3. Cervical length is normal. 4. There has been good interval growth with the fetus currently 25th percentile. 5. Biophysical profile 12/25 with good movement and breathing movement seen. 6. Amniotic fluid is normal with a amniotic fluid index of 9.58 cm. Dictated by: Stanford Esparza MD 01/09/2023 16:57 Stanford Esparza MD in [facility] 01/09/2023 16:57
== END ==
PROVIDERS: PCP Internal Medicine Adolescent Medicine; Visit Provider Nurse Practitioner Obstetrics & Gynecology
DX: O44.42 Low lying placenta NOS or without hemorrhage, second trimester (principal); Z3A.28 28 weeks gestation of pregnancy
CPT/HCPCS: 76816; 76819

== ENCOUNTER 2023-01-09 15:21 | Outpatient (CLI) | payer OTHER, SELFPAY ==
[2023-01-09 15:29] VITALS: BMI 20.5
[2023-01-09 16:00] VITALS: BP 99/60; PULSE 112; RESP 16; TEMP 36.8; O2SAT 97; BMI 20.5
[2023-01-09 16:14] LABS: Basophils % 0.1 % (0.1-2.0); Eosinophils % 0.2 % (0.1-12.0); Hematocrit 32.9 % (37.0-47.0); Hemoglobin 10.7 g/dL (12.2-16.2); Lymphocytes # 0.5 K/mm3 (0.7-4.5); Lymphocytes % 6.3 % (10-50); Mean Corpuscular HGB Conc 32.5 g/dL (31.8-35.4); Mean Corpuscular Hemoglobin 31.1 pg (27.0-31.2); Mean Corpuscular Volume 95.8 fl (81-99); Mean Platelet Volume 9.2 fl (7.4-10.4); Monocytes # 0.3 K/mm3 (0.1-1.0); Monocytes % 4.1 % (1.7-9.3); Neutrophils # 7.3 K/mm3 (1.8-7.8); Neutrophils % 89.4 % (37.0-80.0); Platelet Count 209 K/mm3 (142-424); Red Blood Count 3.44 M/mm3 (4.20-5.40); Red Cell Distribution Width 14.3 % (11.5-17.5); White Blood Count 8.1 K/mm3 (4.8-10.8)
[2023-01-09 16:28] LABS: Alanine Aminotransferase 18 U/L (12-78); Albumin Level 3.3 g/dl (3.5-5.0); Albumin/Globulin Ratio 1.2 (1.1-1.8); Alkaline Phosphatase 92 U/L (38-126); Anion Gap 12.3 mEq/L (5-15); Aspartate Amino Transferase 25 U/L (14-36); Bilirubin,Total 0.2 mg/dl (0.2-1.3); Blood Urea Nitrogen 3 mg/dl (7-17); Calcium 8.2 mg/dl (8.4-10.2); Carbon Dioxide 22 mmol/L (22.0-30.0); Chloride 105 mmol/L (98-107); Creatinine Clearance Estimated 190 mL/min (50-200); Estimated Glomerular Filt Rate 200 ml/min (>60); GFR (African American) 242 ML/MIN (>60); Globulin 2.7 g/dL (1.3-3.2); Glucose 108 mg/dl (74-100); Potassium 3.3 mmoL/L (3.5-5.1); Sodium 136 mmol/L (136-145)
[2023-01-09 16:43] LABS: MANUAL DIFFERENTIAL MANUAL DIFFERENTIAL (MANUAL DIFF)
[2023-01-09 17:35] LABS: Lymphocytes % 8 % (10-50); Macrocytosis 1+; Monocytes % 2 % (2-9); Neutrophils % 90 % (42-76); Platelet Estimate Normal; Total Cells Counted 100
== END 2023-01-09 17:01 | disposition home or self-care (01) ==
LOC: OBOUT 15:22 → OB 15:22
PROVIDERS: Nurse Practitioner Obstetrics & Gynecology; PCP Internal Medicine Adolescent Medicine; Visit Provider Obstetrics & Gynecology
DX: O26.893 Other specified pregnancy related conditions, third trimester (principal); Z3A.28 28 weeks gestation of pregnancy
CPT/HCPCS: 59025; 80053; 85007; 85025; 96365; G0463

== ENCOUNTER 2023-01-17 09:56 | Outpatient (CLI) | payer OTHER, SELFPAY ==
[2023-01-17 10:07] VITALS: BMI 20.9
[2023-01-17 11:00] VITALS: BP 94/52; PULSE 83; RESP 18; TEMP 36.7; O2SAT 98; BMI 20.9
== END 2023-01-17 12:07 | disposition home or self-care (01) ==
LOC: OBOUT 09:56 → OB 09:57
PROVIDERS: PCP Internal Medicine Adolescent Medicine; Visit Provider Nurse Practitioner Obstetrics & Gynecology
DX: O26.893 Other specified pregnancy related conditions, third trimester (principal); Z3A.29 29 weeks gestation of pregnancy; E86.0 Dehydration
CPT/HCPCS: 59025; 96365; G0463

== ENCOUNTER 2023-02-04 12:04 | Outpatient (CLI) | payer OTHER, SELFPAY ==
[2023-02-04 12:13] VITALS: BMI 21.1
[2023-02-04 12:59] LABS: Microscopic, Urine URINE MICROSCOPIC (MICROSCOPIC)
[2023-02-04 13:09] LABS: Appearance,Urine CLEAR (Clear); Bilirubin,Urine Negative (Negative); Blood, Urine Negative (Negative); Color,Urine YELLOW (Yellow); Glucose,Urine (UA) Negative (Negative); Ketones,Urine Negative (Negative); Leukocyte Esterase,Urine Negative (Negative); Nitrate,Urine Negative (Negative); Protein,Urine Negative (Negative); Urobilinogen,Urine 0.2 EU/dl (0.2)
[2023-02-04 13:15] LABS: Fetal Membrane Rupture (Rapid) Negative (Negative)
[2023-02-04 13:23] VITALS: BP 104/66; PULSE 85; RESP 18; TEMP 36.7; O2SAT 100; BMI 21.1
[2023-02-04 13:31] LABS: Squamous Epithelial Cell,Urine Occasional #/hpf (0-5)
[2023-02-04 13:35] LABS: Benzodiazepines Screen,Urine Negative ng/ml (<200)
[2023-02-04 13:36] LABS: Amphetamine/Metha Screen,Urine Negative ng/ml (<1000)
[2023-02-04 13:37] LABS: Barbiturates Screen,Urine Negative ng/ml (<200)
[2023-02-04 13:38] LABS: Methadone Screen,Urine Negative ng/ml (<300)
[2023-02-04 13:39] LABS: Cannabinoid Screen,Urine Negative ng/ml (<50)
[2023-02-04 13:40] LABS: Cocaine Screen,Urine Negative ng/ml (<300)
[2023-02-04 13:41] LABS: Phencyclidine Screen,Urine Negative ng/ml (<25)
[2023-02-04 13:42] LABS: Opiate Screen,Urine Negative ng/ml (<300)
--- NOTE | 2023-02-04 15:10 | US_ITS ---
PROCEDURE INFORMATION: Exam: US , Limited Exam date and time: 02/04/2023 3:36 PM Age: 22 years old Clinical indication: Pain; Other: labor; Gestational age or lmp: 31 weeks 6 days; ; Additional info: Checking cervical length. TECHNIQUE: Imaging protocol: Real-time ultrasound of the maternal uterus with image documentation. Exam focused on the clinical indication. COMPARISON: US OB BIOPHYSICAL PROFILE 01/09/2023 1:02 PM FINDINGS: Gestation: Single live intrauterine gestation heart rate: There is a [place] fetus with measured heart rate of 147 bpm. position: The fetus is in breech position. BIOMETRY: Gestational age (AUA): Estimated gestational age is 31 weeks 6 days. Estimated due date (AUA): Estimated date of delivery is April 02, 2023 MATERNAL: Cervix: There is a small volume of fluid in the endocervical canal. The endocervical canal measures 2.9 cm in length. IMPRESSION: Small volume of fluid in the endocervical canal with a 2.9 cm length. Live intrauterine gestation measuring 31 weeks 6 days.
[2023-02-04 16:14] LABS: Fetal Fibronectin (Rapid) Negative (Negative)
== END 2023-02-04 16:30 | disposition home or self-care (01) ==
LOC: OBOUT 12:06 → OB 12:06
PROVIDERS: PCP Nurse Practitioner Family; Visit Provider Obstetrics & Gynecology
DX: O47.03 False labor before 37 completed weeks of gestation, third trimester (principal); Z3A.31 31 weeks gestation of pregnancy; O26.893 Other specified pregnancy related conditions, third trimester
CPT/HCPCS: 59025; 76815; 80305; 81001; 82731; 84112; G0463

== ENCOUNTER 2023-02-05 11:31 | Outpatient (CLI) | payer OTHER, SELFPAY ==
[2023-02-05 11:45] VITALS: BMI 21.2
[2023-02-05 12:19] LABS: Barbiturates Screen,Urine Negative ng/ml (<200)
[2023-02-05 12:20] LABS: Benzodiazepines Screen,Urine Negative ng/ml (<200)
[2023-02-05 12:21] LABS: Amphetamine/Metha Screen,Urine Negative ng/ml (<1000); Methadone Screen,Urine Negative ng/ml (<300)
[2023-02-05 12:23] LABS: Cocaine Screen,Urine Negative ng/ml (<300); Opiate Screen,Urine Negative ng/ml (<300)
[2023-02-05 12:24] LABS: Phencyclidine Screen,Urine Negative ng/ml (<25)
[2023-02-05 12:29] VITALS: BP 109/65; PULSE 97; RESP 18; TEMP 36.7; O2SAT 100; BMI 21.2
[2023-02-05 15:45] LABS: Cannabinoid Screen,Urine Negative ng/ml (<50)
== END 2023-02-05 12:38 | disposition home or self-care (01) ==
LOC: OBOUT 11:32 → OB 11:33
PROVIDERS: Obstetrics & Gynecology; PCP Internal Medicine Adolescent Medicine; Visit Provider Nurse Practitioner Obstetrics & Gynecology
DX: O47.03 False labor before 37 completed weeks of gestation, third trimester (principal); Z3A.31 31 weeks gestation of pregnancy
CPT/HCPCS: 59025; 80305; G0463

== ENCOUNTER 2023-02-06 10:49 | Outpatient (CLI) | payer OTHER, SELFPAY ==
[2023-02-06 11:21] VITALS: BMI 21.2
[2023-02-06 11:32] VITALS: BMI 21.6
== END 2023-02-06 13:26 | disposition home or self-care (01) ==
LOC: OBOUT 10:52 → OB 10:53
PROVIDERS: PCP Internal Medicine Adolescent Medicine; Visit Provider Obstetrics & Gynecology
DX: O26.893 Other specified pregnancy related conditions, third trimester (principal); Z3A.32 32 weeks gestation of pregnancy
CPT/HCPCS: 59025; 96365; G0463

== ENCOUNTER → 2023-02-06 23:15 | Outpatient (CLI) | payer OTHER, SELFPAY | PROVIDERS: PCP Internal Medicine Adolescent Medicine; Visit Provider Obstetrics & Gynecology | DX: E86.0 Dehydration (principal); O99.283 Endocrine, nutritional and metabolic diseases complicating pregnancy, third trimester; Z3A.32 32 weeks gestation of pregnancy | CPT/HCPCS: 87086 ==

== ENCOUNTER 2023-02-07 15:29 | Outpatient (CLI) | payer OTHER, SELFPAY ==
[2023-02-07 16:11] VITALS: BMI 21.2
[2023-02-07 16:43] LABS: Microscopic, Urine URINE MICROSCOPIC (MICROSCOPIC)
[2023-02-07 16:44] LABS: Fetal Membrane Rupture (Rapid) Negative (Negative)
[2023-02-07 16:55] LABS: Appearance,Urine CLEAR (Clear); Bilirubin,Urine Negative (Negative); Blood, Urine Negative (Negative); Color,Urine YELLOW (Yellow); Glucose,Urine (UA) Negative (Negative); Ketones,Urine Negative (Negative); Leukocyte Esterase,Urine Negative (Negative); Nitrate,Urine Negative (Negative); Protein,Urine Negative (Negative); Urobilinogen,Urine 0.2 EU/dl (0.2)
[2023-02-07 17:08] LABS: Barbiturates Screen,Urine Negative ng/ml (<200); Benzodiazepines Screen,Urine Negative ng/ml (<200)
[2023-02-07 17:09] LABS: Amphetamine/Metha Screen,Urine Negative ng/ml (<1000); Methadone Screen,Urine Negative ng/ml (<300)
[2023-02-07 17:10] LABS: Cannabinoid Screen,Urine Negative ng/ml (<50); Squamous Epithelial Cell,Urine Occasional #/hpf (0-5); WBC,Urine Occasional #/hpf (0-3)
[2023-02-07 17:11] LABS: Cocaine Screen,Urine Negative ng/ml (<300); Opiate Screen,Urine Negative ng/ml (<300)
[2023-02-07 17:12] LABS: Phencyclidine Screen,Urine Negative ng/ml (<25)
--- NOTE | 2023-02-07 17:25 | US_ITS ---
PROCEDURE INFORMATION: Exam: US , Limited and US , Transvaginal Exam date and time: 02/07/2023 5:52 PM Age: 22 years old Clinical indication: Condition or disease; Premature labor; Third trimester (=28 weeks 0 days); ; Additional info: Possible srom LABS AND CLINICAL REPORTS: Gestational age (Established): 32 w 2 d Estimated due date (Established): 04/02/2023 TECHNIQUE: Imaging protocol: Real-time ultrasound of the maternal uterus with image documentation. Transvaginal imaging was used for better evaluation of the fetus, adnexa, and/or cervix. Exam focused on the clinical indication. COMPARISON: US OB LIMITED POSITION 02/04/2023 3:36 PM FINDINGS: Uterus: A single, live intrauterine gestation in breech presentation. Normal cardiac activity was seen at 150 bmp. Cervix: On endovaginal sonography closed internal os without evidence of funneling, cervical length is approximately 3.0 cm. Hypoechoic mucous plug/fluid within the cranial segment of the cervix. Amniotic Fluid: CLAUDE 10.4 cm, MVP 4.3 cm. Placenta: The placenta is anterior, Grade 1, without evidence of previa or placental abruption. Adnexa: No adnexal mass or abnormality. No free fluid within the pelvis. IMPRESSION: 1. Single VIABLE intrauterine gestation. 2. On endovaginal sonography closed internal os without evidence of funneling, cervical length is approximately 3.0 cm. 3. Hypoechoic mucous plug/fluid within the cranial segment of the cervix. PROCEDURE INFORMATION: Exam: US Biophysical Profile Without Non-Stress Test Exam date and time: 02/07/2023 5:52 PM Age: 22 years old Clinical indication: Condition or disease; Premature labor; Third trimester (=28 weeks 0 days); ; Additional info: Possible srom TECHNIQUE: Imaging protocol: US biophysical profile without non-stress testing. COMPARISON: US OB LIMITED POSITION 02/04/2023 3:36 PM FINDINGS: heart rate: 150 bpm Amniotic fluid index: CLAUDE is 10.36 cm. Biophysical Profile: breathing movement (BPP): 2 body movement (BPP): 2 tone (BPP): 2 Amniotic fluid (BPP): 2 IMPRESSION: 1. Single VIABLE intrauterine gestation. 2. Biophysical Profile of 12/25.
[2023-02-07 18:15] VITALS: BP 116/71; PULSE 87; RESP 18; TEMP 36.9; O2SAT 100; BMI 21.2
== END 2023-02-07 18:52 | disposition home or self-care (01) ==
LOC: OBOUT 15:32 → OB 15:33
PROVIDERS: PCP Internal Medicine Adolescent Medicine; Visit Provider Obstetrics & Gynecology
DX: O26.893 Other specified pregnancy related conditions, third trimester (principal); Z3A.32 32 weeks gestation of pregnancy
CPT/HCPCS: 59025; 76819; 80305; 81001; 84112; G0463

== ENCOUNTER → 2023-02-11 09:46 | Outpatient (CLI) | payer OTHER, SELFPAY ==
--- NOTE | 2023-02-11 10:13 | US_ITS ---
PROCEDURE: US OB BIOPHYSICAL PROFILE CLINICAL INDICATION: growth/bpp COMPARISON: FINDINGS: Transabdominal sonographic images of the uterus were obtained. From her established due date she is 32weeks 6days. The following parameters are obtained: Viable fetus in the cephalic presentation with a posterior placenta grade 2. Cervix measures from 1.9 cm to 2.3 cm in length. No funneling with Valsalva. Average ultrasound age is 32weeks 6days. Estimated due date by ultrasound is 04/02/2023. Estimated weight is 4lb 3.29oz. 20Percentile. heart rate: 143bpm bpm. BPD: 33 weeks 6 days HC: 33 weeks 0 days AC: 31 weeks 2 days FL: 32 weeks 6 days HC/AC: 1.1 BPD: 0.76 FL/AC: 0.23 Amniotic fluid index: 8.4cm Qualitative AFV: 2 breathing movements: 2 Gross body movements: 2 Tone: 2 Biophysical profile score: 8 No obvious anomalies evident.Kidneys, four-chamber view, three-vessel cord appear normal. IMPRESSION: 1. Viable fetus in the cephalic presentation with a posterior placenta grade 2. 2. biometry is consistent with dates. Currently 20th percentile. 3. Cervix measures between 1.9 cm and 2.3 cm. 4. Biophysical profile 12/25 with good breathing movement seen. Dictated by: Stanford Esparza MD 02/11/2023 16:37 Stanford Esparza MD in [facility] 02/11/2023 16:37
== END ==
PROVIDERS: PCP Internal Medicine Adolescent Medicine; Visit Provider Obstetrics & Gynecology
DX: O36.5930 Maternal care for other known or suspected poor fetal growth, third trimester, not applicable or unspecified (principal); Z3A.32 32 weeks gestation of pregnancy
CPT/HCPCS: 76816; 76819

== ENCOUNTER 2023-02-19 12:41 | Outpatient (CLI) | payer OTHER, SELFPAY ==
[2023-02-19 12:52] VITALS: BMI 21.1
[2023-02-19 12:54] VITALS: BP 103/63; PULSE 102; RESP 17; TEMP 36.8; O2SAT 96; BMI 21.1
[2023-02-19 13:10] LABS: Microscopic, Urine URINE MICROSCOPIC (MICROSCOPIC)
[2023-02-19 13:15] LABS: Appearance,Urine CLEAR (Clear); Bilirubin,Urine Negative (Negative); Blood, Urine Negative (Negative); Color,Urine YELLOW (Yellow); Glucose,Urine (UA) Negative (Negative); Ketones,Urine Negative (Negative); Leukocyte Esterase,Urine 1+ (Negative); Nitrate,Urine Negative (Negative); Protein,Urine Negative (Negative); Specific Gravity, Urine 1.015 (1.005-1.030); Urobilinogen,Urine 0.2 EU/dl (0.2)
[2023-02-19 13:27] LABS: Amphetamine/Metha Screen,Urine Negative ng/ml (<1000); Benzodiazepines Screen,Urine Negative ng/ml (<200)
[2023-02-19 13:28] LABS: Barbiturates Screen,Urine Negative ng/ml (<200)
[2023-02-19 13:29] LABS: Bacteria,Urine 1+ /lpf; Cannabinoid Screen,Urine Negative ng/ml (<50); Cocaine Screen,Urine Negative ng/ml (<300); RBC,Urine Occasional #/hpf (0-3)
[2023-02-19 13:30] LABS: Methadone Screen,Urine Negative ng/ml (<300); Opiate Screen,Urine Negative ng/ml (<300)
[2023-02-19 13:31] LABS: Phencyclidine Screen,Urine Negative ng/ml (<25)
[2023-02-19 14:50] LABS: Fetal Fibronectin (Rapid) Negative (Negative)
== END 2023-02-19 16:25 | disposition home or self-care (01) ==
LOC: OBOUT 12:42 → OB 12:43
PROVIDERS: PCP Internal Medicine Adolescent Medicine; Visit Provider Obstetrics & Gynecology
DX: O26.893 Other specified pregnancy related conditions, third trimester (principal); Z3A.33 33 weeks gestation of pregnancy; O46.93 Antepartum hemorrhage, unspecified, third trimester
CPT/HCPCS: 59025; 80305; 81001; 82731; 87086; 96365; G0463

== ENCOUNTER → 2023-03-04 23:27 | Outpatient (CLI) | payer OTHER, SELFPAY | PROVIDERS: PCP Internal Medicine Adolescent Medicine; Visit Provider Nurse Practitioner Obstetrics & Gynecology | DX: Z34.93 Encounter for supervision of normal pregnancy, unspecified, third trimester (principal); Z3A.35 35 weeks gestation of pregnancy | CPT/HCPCS: 86403 ==

== ENCOUNTER → 2023-03-05 09:35 | Outpatient (CLI) | payer OTHER, SELFPAY ==
--- NOTE | 2023-03-05 09:36 | US_ITS ---
PROCEDURE: US OB BIOPHYSICAL PROFILE CLINICAL INDICATION: sga COMPARISON: Ultrasound 02/11/2023 FINDINGS: Transabdominal sonographic images of the uterus were obtained. From her established due date she is 36weeks 0 days. The following parameters are obtained: Viable fetus in the cephalic presentation with a posterior placenta grade 2 Average ultrasound age is 34weeks 1day. heart rate: 123bpm bpm. weight 5 lb 4 oz Cervix measures 2.0 cm to 2.5 cm transvaginally. BPD: 34 weeks 0 days HC: 33 weeks 1 day AC: 34 weeks 1 day FL: 35 weeks 0 days HC/AC: 0.99 Cephalic index: FL/BPD: 0.81 FL/AC: 0.23 11 percentile Amniotic fluid index: 9.07cm Qualitative AFV: 2 breathing movements: 2 Gross body movements: 2 Tone: 2 Biophysical profile score: 8 No obvious anomalies evident.Kidneys, profile, four-chamber view, stomach, bladder, three-vessel cord appear normal. IMPRESSION: 1. Viable fetus in the cephalic presentation with a posterior placenta grade 2. 2. The fluid is within normal limits with an amniotic fluid index of 9.07 cm. 3. Biophysical profile 8/8 with good breathing movement and good movement seen. 4. Fetus is globally small with the baby currently 11th percentile currently wearing 5 pounds 4 ounces. The serial growth curve has been consistent. Dictated by: Stanford Esparza MD 03/05/2023 15:16 Stanford Esparza MD in [place] 03/05/2023 15:16
== END ==
PROVIDERS: PCP Internal Medicine Adolescent Medicine; Visit Provider Nurse Practitioner Obstetrics & Gynecology
DX: O36.5930 Maternal care for other known or suspected poor fetal growth, third trimester, not applicable or unspecified (principal); Z3A.36 36 weeks gestation of pregnancy
CPT/HCPCS: 76816; 76819

== ENCOUNTER 2023-03-14 04:51 | Inpatient (IN) | payer OTHER, SELFPAY ==
[2023-03-14 03:34] VITALS: BMI 21.8
[2023-03-14 03:48] LABS: Microscopic, Urine URINE MICROSCOPIC (MICROSCOPIC)
[2023-03-14 03:50] LABS: Appearance,Urine CLEAR (Clear); Bilirubin,Urine Negative (Negative); Blood, Urine Negative (Negative); Color,Urine YELLOW (Yellow); Glucose,Urine (UA) Negative (Negative); Ketones,Urine Negative (Negative); Leukocyte Esterase,Urine Negative (Negative); Nitrate,Urine Negative (Negative); PH,Urine 6.5 (5.0-8.5); Protein,Urine Negative (Negative); Urobilinogen,Urine 0.2 EU/dl (0.2)
[2023-03-14 03:54] VITALS: BP 119/78; PULSE 74; RESP 17; TEMP 36.7; O2SAT 98; BMI 21.8
[2023-03-14 04:04] LABS: Barbiturates Screen,Urine Negative ng/ml (<200); Benzodiazepines Screen,Urine Negative ng/ml (<200)
[2023-03-14 04:05] LABS: Amphetamine/Metha Screen,Urine Negative ng/ml (<1000); Methadone Screen,Urine Negative ng/ml (<300)
[2023-03-14 04:06] LABS: Cannabinoid Screen,Urine Negative ng/ml (<50)
[2023-03-14 04:07] LABS: Cocaine Screen,Urine Negative ng/ml (<300); Opiate Screen,Urine Negative ng/ml (<300)
[2023-03-14 04:08] LABS: Bacteria,Urine Trace /lpf; Phencyclidine Screen,Urine Negative ng/ml (<25); Squamous Epithelial Cell,Urine Occasional #/hpf (0-5); WBC,Urine Occasional #/hpf (0-3)
[2023-03-14 05:36] LABS: Basophils % 0.2 % (0.1-2.0); Eosinophils % 0.4 % (0.1-12.0); Hemoglobin 11.3 g/dL (12.2-16.2); Lymphocytes % 20.5 % (10-50); Mean Corpuscular HGB Conc 34.2 g/dL (31.8-35.4); Mean Corpuscular Hemoglobin 30.9 pg (27.0-31.2); Mean Corpuscular Volume 90.2 fl (81-99); Mean Platelet Volume 10.4 fl (7.4-10.4); Monocytes # 0.4 K/mm3 (0.1-1.0); Monocytes % 4.2 % (1.7-9.3); Neutrophils # 7.4 K/mm3 (1.8-7.8); Neutrophils % 74.7 % (37.0-80.0); Platelet Count 203 K/mm3 (142-424); Red Blood Count 3.66 M/mm3 (4.20-5.40); Red Cell Distribution Width 15.1 % (11.5-17.5)
--- NOTE | 2023-03-14 07:20 | P.CONPHA_ITS ---
Pharmacy Intervention Comments: MEDICATION RECONCILIATION COMPLETED ON PATIENT USING EXTERNAL FILL HISTORY FORM PHARMACY AND LIST FROM FIRE WATCHER OFFICE. -WILL BENSOND
--- NOTE | 2023-03-14 09:31 | EXP.HP ---
History of Present Illness *Admission Date: 03/14/23 *Reason for visit:: Labor *History of present illness: Anna is a 22yo who presented to labor and delivery at 37w1d gestation. She presented with regular painful contractions. endorses FM, denied LOF. She received care with Dr. Esparza and it was complicated by SGA with growth in the 11th percentile. She is RNI, GBS positive and she received a course of steroids at 32 weeks. She was 2/50/-3 on arrival and at 0730 when i arrived she was 5/70/-2 O+, antibody negative, RNI, hepatitis B negative, hepatitis C negative, RPR negative, HIV negative, NG/CT neg 1 hour GTT: 40 GBS positive PFSH PFSH Disclaimer: The information contained in this section may have been updated after the patient was seen, as this information can be updated by other users. Medical History Rubella non-immune status, antepartum Surgical History History of tonsillectomy and adenoidectomy Family History Other Family history non-contributory Social History Smoking Status: Never smoker second hand exposure: No alcohol intake: never substance use type: denies use current occupational status: unemployed Travel in the last 8 weeks: None household members: significant other housing: house current occupation: secre current occupational exposures/hazards: No caffeine: Yes Review of Systems Review of Systems Review of systems (narrative): Review of Systems Constitutional: Denies fever, chills, and sweats Eyes: Denies vision change/ pain Respiratory: Denies cough and shortness of breath Cardiovascular: Denies chest pain and lightheadedness Gastrointestinal: Admits abdominal pain with contractions. Denies nausea, vomiting. Genitourinary: Denies dysuria and incontinence Musculoskeletal: Denies shoulder pain and back pain Neurological: Denies change in speech or headaches Meds Home Medications and Allergies Home Medications Medication Instructions Recorded Confirmed Type vits no.[id number]-ferrous fum 1 tab PO DAILY Supplement 10/19/22 03/14/23 History 28 mg iron-folic acid 800 mcg tablet (Classic ) magnesium citrate 100 mg capsule 100 mg PO DAILY Supplement 12/19/22 03/14/23 History ferrous sulfate 325 mg (65 mg 325 mg PO DAILY Supplement 03/14/23 03/14/23 History iron) tablet,delayed release hydroxyzine HCl 25 mg tablet 25 mg PO TIDP PRN Itching 03/14/23 03/14/23 History New Prescriptions to Start Prescriptions: Allergies Allergy/AdvReac Type Severity Reaction Status Date / Time amoxicillin Allergy Mild hives Verified 03/12/23 08:30 Penicillins Allergy Mild hives Verified 03/12/23 08:30 grape flavor Allergy Blister Verified 03/12/23 08:30 metronidazole [From Flagyl] Allergy Blisters/vo Verified 03/12/23 08:30 miting Exam Data for Last 24 hours Vital signs and Labs for Last 24 Hours: Temp Pulse Resp BP Pulse Ox O2 Del Method 98.0 F 74 17 119/78 98 Room Air 03/14/23 03:54 03/14/23 03:54 03/14/23 03:54 03/14/23 03:54 03/14/23 03:54 03/14/23 03:54 Laboratory Results - last 24 hr 03/14/23 03:34: Urine Color Yellow, Urine Appearance Clear, Urine pH 6.5, Ur Specific [place] 1.010, Urine Protein Negative, Urine Glucose (UA) Negative, Urine Ketones Negative, Urine Blood Negative, Urine Nitrate Negative, Urine Bilirubin Negative, Urine Urobilinogen 0.2, Ur Leukocyte Esterase Negative, Urine WBC Occasional, Ur Squamous Epith Cells Occasional, Urine Bacteria Trace, Urine Opiates Screen Negative, Urine Methadone Screen Negative, Ur Barbituates Screen Negative, Ur Phencyclidine Scrn Negative, Ur Amphetamines Screen Negative, U Benzodiazepines Scrn Negative, Urine Cocaine Screen Negative, U Marijuana (TH
--- NOTE | 2023-03-14 10:39 | P.PNANES_ITS ---
[facility] Disclaimer: The information contained in this section may have been updated after the patient was seen, as this information can be updated by other users. Medical History Rubella non-immune status, antepartum Surgical History History of tonsillectomy and adenoidectomy Family History Other Family history non-contributory Social History Smoking Status: Never smoker second hand exposure: No alcohol intake: never substance use type: denies use current occupational status: unemployed Travel in the last 8 weeks: None household members: significant other housing: house current occupation: secre current occupational exposures/hazards: No caffeine: Yes [facility] Anesthesia Checklist Patient Identification Patient Identification: Arm Band Structural Data Admitted From: Inpatient Planned Operative Procedure/s: Labor Epidural Consent for Planned Operative Procedure(s) Verified: Yes Verified Documents: Surgical Consent and History and Physical NPO Status Verified Time NPO: 00:00 Additional verifications Anesthesia Reactions: No Hx Blood Transfusions: No Blood Transfusion Reaction: No Airway Assessment Mallampati Score:: Class II C-Spine Mobility Assessed: Yes TMJ Mobility Assessed: Yes Dentition: Good Dentition Neurological Assessment Level of Consciousness: Awake and Alert Anesthesia Plan Anesthesia Risk discussed: Yes Anesthesia Plan: Verified ASA Class: II Anesthesia Type: Epidural
--- NOTE | 2023-03-14 16:57 | EXP.DN ---
Delivery Note Delivery Date:: 03/14/23 Delivery Time:: 16:29 Anesthesia Type: Epidural Was labor medically induced?: No Induction method: none Gestational age (weeks): 37 delivered prior to 39 weeks?: Yes Justification for early elective delivery:: Active Labor Infant Gender: Female at 1 minute: 7 at 5 minutes: 9 Delivery Procedure:: Preoperative diagnosis: 1. at 37 completed this weeks gestation, vertex 2. Rh positive 3. GBS positive 4. Active labor Postoperative diagnosis: 1. at 37 completed this weeks gestation, vertex 2. Rh positive 3. GBS positive 4. Active labor EBL: 100mL Specimen: 1. Cord blood Findings: 1. Liveborn viable female infant. Apgars 7/9 at 1 and 5 minutes respectively. Weight pending at time of dictation Complications: None Anna presented to labor and delivery this morning with regular painful contractions she was noted to make cervical change from 2/50 to 5/80/-2 without augmentation. Decision was made to admit the patient for labor monitoring and delivery. Her labor was augmented with AROM and Pitocin. Artificial rupture membranes revealed copious clear fluid. She progressed through labor normally. I was called when the patient was complete. On arrival the patient was +2 station and noted to be in the direct OA position. With effective maternal pushing there was a nonoperative spontaneous vaginal delivery at 1629. There is no nuchal cord. The anterior right shoulder delivered, followed by the posterior shoulder without dystocia. The body and lower extremities delivered without difficulty. The was bulb suctioned and was crying immediately following delivery. The infant was placed on the maternal abdomen and greater than one minute was appreciated for delayed cord clamping. The umbilical cord was doubly clamped and cut. Cord blood was collected and sent for routine testing. The placenta delivered with cord traction and suprapubic contertraction. Pitocin was started and the placenta and cord were inspected. The placenta was noted to be intact, with a 3 vessel cord. The uterus was firm and bleeding was minimal. The perineum, vaginal tovar, cervix, and paraurethral area were inspected thoroughly and noted to be free of any lacerations. The cervix and vaginal tovar were inspected and noted to be hemostatic and free of laceration. This concluded the delivery. The patient was counseled regarding the events of the delivery and repair. The patient tolerated the delivery well. All counts were correct by nursing. Mother and were doing well and bonding upon my leaving the delivery room. Placental Delivery Description: Spontaneous
[2023-03-14 20:00] VITALS: BP 110/63; PULSE 73; RESP 17; TEMP 36.8; O2SAT 98
[2023-03-15 07:26] LABS: Basophils % 0.1 % (0.1-2.0); Eosinophils % 0.3 % (0.1-12.0); Hematocrit 28.8 % (37.0-47.0); Hemoglobin 9.7 g/dL (12.2-16.2); Lymphocytes # 1.7 K/mm3 (0.7-4.5); Lymphocytes % 18.6 % (10-50); Mean Corpuscular HGB Conc 33.7 g/dL (31.8-35.4); Mean Corpuscular Hemoglobin 30.6 pg (27.0-31.2); Mean Corpuscular Volume 90.7 fl (81-99); Mean Platelet Volume 9.6 fl (7.4-10.4); Monocytes # 0.4 K/mm3 (0.1-1.0); Monocytes % 4.6 % (1.7-9.3); Neutrophils # 6.9 K/mm3 (1.8-7.8); Neutrophils % 76.3 % (37.0-80.0); Platelet Count 180 K/mm3 (142-424); Red Blood Count 3.17 M/mm3 (4.20-5.40); Red Cell Distribution Width 15.1 % (11.5-17.5)
--- NOTE | 2023-03-15 09:36 | EXP.DC.SUM ---
General Admission date:: 03/14/23 Discharge date: 03/15/23 HPI HPI HPI: Anna is a 22yo who presented to labor and delivery at 37w1d gestation. She presented with regular painful contractions. endorses FM, denied LOF. She received care with Dr. Esparza and it was complicated by SGA with growth in the 11th percentile. She is RNI, GBS positive and she received a course of steroids at 32 weeks. She was 2/50/-3 on arrival and at 0730 when i arrived she was 5/70/-2 O+, antibody negative, RNI, hepatitis B negative, hepatitis C negative, RPR negative, HIV negative, NG/CT neg 1 hour GTT: 40 GBS positive Hospital Course Hospital Course Hospital Course: Anna Fitzpatrick is a 22-year-old -0-1-2 day #1 from a normal spontaneous vaginal delivery over an intact perineum. She received care by Dr. Bolaños. Her and delivery and course has been uneventful. She is doing well this morning. She did have a hemoglobin drop to 9.7 however she is completely asymptomatic from that. She is ambulating, voiding, and tolerating normal diet without, dysuria, nausea or vomiting. Patient desires discharge in a TLC room as the will not be discharged until tomorrow given GBS positive and delivered at 37 weeks gestation. Routine discharge instructions reviewed with patient in detail and she voiced understanding. All questions and concerns were addressed. Exam Data for Last 24 hours Vital signs and Labs for Last 24 Hours: Temp Pulse Resp BP Pulse Ox O2 Del Method 98.2 F 73 17 110/63 98 Room Air 03/14/23 20:00 03/14/23 20:00 03/14/23 20:00 03/14/23 20:00 03/14/23 20:00 03/14/23 20:00 Laboratory Results - last 24 hr 03/15/23 07:00: WBC 9.0, RBC 3.17 L, Hgb 9.7 L, Hct 28.8 L, MCV 90.7, MCH 30.6, MCHC 33.7, RDW 15.1, Plt Count 180, MPV 9.6, Neut % (Auto) 76.3, Lymph % (Auto) 18.6, [place] % (Auto) 4.6, Eos % (Auto) 0.3, Baso % (Auto) 0.1, Neut # (Auto) 6.9, Lymph # (Auto) 1.7, [place] # (Auto) 0.4, Eos # (Auto) 0.0, Baso # (Auto) 0.0 I & O for Last 24 hours: Intake & Output 03/12/23 03/13/23 03/14/23 03/15/23 23:59 23:59 23:59 23:59 Output Total 350 / 350 Balance -350 / -350 Weight 127 lb Narrative: General: patient is alert oriented in no acute distress and responds appropriately to questions. Appears to be in minimal pain. resting in bed and doing well HEENT: NCAT, EOMI, moist mucous membranes, neck supple with full ROM Cardiovascular: RRR +S1/S2, no murmurs or rubs Pulmonary: Clear to auscultation bilaterally, nonlabored breathing, symmetric chest rise Abdominal: Fundus 2 fingerbreadths below umbilicus, firm, and tenderness appropriate for the period. Extremities: trace edema, no tenderness or cyanosis noted Skin: Normal turgor, intact, warm. Negative for erythema, pallor, petechia, or lesions Neurologic: Negative for sensory or motor deficit Psychiatric: Normal affect, normal thought process, good judgment and insight, no depression or anxious mood appreciated. Constitutional Constitutional: no acute distress *Routine HEENT Exam Head: Present normocephalic Eye: Present EOMI and PERRL ENT: Present mucous membranes moist *Routine Neck Exam Neck: Present supple; Absent lymphadenopathy *Routine Respiratory Exam Respiratory: Present CTA bilaterally *Routine Cardiovascular Exam Cardiovascular: Present RRR *Routine Abdominal Exam Abdominal: Present soft and normoactive bowel sounds; Absent tenderness *Routine Extremities Exam Extremities: Absent cyanosis, clubbing or edema *Routine Skin Exam Skin: Present warm; Absent rash *Routine Neurological Exam Neurological: Present alert and oriented X3 Results Data Completed and Pending Labs on day of discharge: Labs from last 24 hours 03/15/23 07:00 WBC 9.0 RBC 3.17 L Hgb 9.7 L Hct 28.8 L MCV 90.7 MCH 30.6 MCHC 33.7 RDW 15.1 Plt Count 180 MPV 9.6 Neut % (Auto) 76.3 Lymph % (Auto)
== END 2023-03-15 12:30 | disposition home or self-care (01) | DRG 806 ==
LOC: OBOUT 04:51 → OB 04:51
PROVIDERS: Obstetrics & Gynecology; Admitting Provider Nurse Practitioner Obstetrics & Gynecology; PCP Internal Medicine Adolescent Medicine; Visit Provider Nurse Practitioner Obstetrics & Gynecology
DX: O99.824 Streptococcus B carrier state complicating childbirth (principal); D62 Acute posthemorrhagic anemia; Z37.0 Single live birth; Z3A.37 37 weeks gestation of pregnancy; O90.81 Anemia of the puerperium
CPT/HCPCS: 59409; 36415; 59025; 80305; 81001; 85025; 86850; 90707; 94761; C1758; G0283; J2405

== ENCOUNTER 2023-12-30 13:23 | Outpatient (CLI) | payer OTHER, SELFPAY ==
--- NOTE | 2023-12-30 13:23 | US_ITS ---
PROCEDURE: US TRANSVAGINAL CLINICAL INDICATION: irreg. bleeding COMPARISON: No exams were available for comparison FINDINGS: Transvaginal sonographic images of the pelvis were obtained. UTERUS: 7.4cm x 5.8 cmx 4.3cm retroverted with a combined endometrial thickness of 5mm. There is a 0.67 cm nabothian cyst in the cervix. LEFT OVARY: 4.0cmx2.4cmx2.3cm with a volume of 11.2ml. There is a follicle in the left ovary measuring 2.0 cm x 3.1 cm x 2.0 cm. RIGHT OVARY: 2.5 cmx 1.8 cmx1.2cm with a volume of 2.8ml. There are several small follicles in the right ovary. Both ovaries are seen and appear normal. Doppler flow to both ovaries are seen. There is a small amount of fluid in the cul-de-sac. IMPRESSION: 1. Retroverted uterus normal in shape and size. The endometrium is thin measuring 5.0 mm. 2. Both ovaries are seen and appear normal. There is a 3.1 cm follicle on the left ovary. 3. There is a small amount of fluid in the cul-de-sac. Dictated by: Stanford Esparza MD 12/30/2023 15:52 Stanford Esparza MD in [facility] 12/30/2023 15:52
== END 2023-12-30 23:59 | disposition home or self-care (01) ==
LOC: RAD 13:23
PROVIDERS: PCP Internal Medicine Adolescent Medicine; Visit Provider Nurse Practitioner Obstetrics & Gynecology
DX: N92.6 Irregular menstruation, unspecified (principal)
CPT/HCPCS: 76830